=== PATIENT | female | born 1965 | race Caucasian/White ===

== ENCOUNTER 2016-11-01 09:36 | Emergency (ER) | payer MEDICARE ==
[2016-11-01] MEDS ORDERED: SODIUM CHLORIDE 0.9% 1,000 ML IV ONE (10:02)
[2016-11-01] MEDS ORDERED: KETOROLAC 30 MG/ML 1 ML VIAL IVP STA (10:03)
[2016-11-01] MEDS ORDERED: diphenhydrAMINE 50 MG/ML 1 ML VIAL IVP STA (10:03)
[2016-11-01] MEDS ORDERED: ONDANSETRON 4 MG/2 ML VIAL IVP STA (10:03)
--- NOTE | 2016-11-01 10:11 | ED ---
General Adult HPI - General Chief complaint: Headache Stated complaint: migraine,cough Time Seen by Provider: 11/01/16 09:51 Source: patient, RN notes reviewed Mode of arrival: ambulatory Limitations: no limitations - History of Present Illness Initial comments: This 51-year-old female presents emergency Department with chief complaint of migraine headache, cough. Patient states the headache has been present for over one week in the frontal aspect. She states that she has had headache like this in the past and states that the time it was her worst when she had her first migraine and they did an LP. Patient states that she has no history of meningitis. Patient states she has no neck pain or neck stiffness. She does complain of a sore throat states it's very raw feeling states it hurts to cough. Patient states that she's felt rundown and sick and states symptoms are not improving. She is concerned as her friend in the room was recently admitted for pneumonia and she is on current IV antibiotics and she has been helping take care of her. Patient states that she has no ear pain no blurred vision but she does have some photosensitivity. Patient has any focal weakness. She does admit to some nausea no vomiting no diarrhea no constipation. She is a daily smoker and has some shortness of breath but not her baseline. - Related Data Home Medications Medication Instructions Recorded Confirmed Albuterol Inhaler [Ventolin Hfa 1 - 2 puff INHALATION RT-Q6H PRN 11/01/16 Inhaler] Citalopram Hydrobromide [CeleXA] 20 mg PO BID 11/01/16 11/01/16 Ibuprofen [Motrin] 800 mg PO Q8H PRN 11/01/16 11/01/16 LORazepam [Ativan] 1 mg PO BID PRN 11/01/16 11/01/16 Lisinopril [Zestril] 2.5 mg PO DAILY 11/01/16 11/01/16 Morphine Sulfate Ir [Msir] 30 mg PO Q4HR PRN MDD 5 tablets 11/01/16 11/01/16 fentaNYL 12MCG/HR PATCH [Duragesic 1 patch TRANSDERM Q72H 11/01/16 11/01/16 12MCG/HR] Previous Rx's Medication Instructions Recorded Butalb/APAP/Caff 50-325-40Mg 1 tab PO Q4H PRN #10 tablet 11/01/16 [Fioricet 50-325-40] Levofloxacin [Levaquin] 500 mg PO DAILY #7 tab 11/01/16 methylPREDNISolone [Medrol Dose 4 mg PO DIRECTED #1 pack 11/01/16 Pack] Allergies Allergy/AdvReac Type Severity Reaction Status Date / Time No Known Allergies Allergy Verified 11/01/16 10:55 Review of Systems ROS Statement: Those systems with pertinent positive or pertinent negative responses have been documented in the HPI. ROS Other: All systems not noted in ROS Statement are negative. Past Medical History Past Medical History: Asthma, COPD History of Any Multi-Drug Resistant Organisms: None Reported Additional Past Surgical History / Comment(s): partial discectomy in lumbar region, cyst in knee removed Past Psychological History: No Psychological Hx Reported Smoking Status: Current every day smoker Past Alcohol Use History: None Reported Past Drug Use History: None Reported General Exam Limitations: no limitations General appearance: alert, in no apparent distress Head exam: Present: atraumatic, normocephalic, normal inspection Eye exam: Present: normal appearance, PERRL, EOMI. Absent: scleral icterus, conjunctival injection, periorbital swelling ENT exam: Present: mucous membranes moist, TM's normal bilaterally, normal external ear exam. Absent: normal exam, normal oropharynx Neck exam: Present: normal inspection, full ROM. Absent: tenderness, meningismus, lymphadenopathy Respiratory exam: Present: normal lung sounds bilaterally. Absent: respiratory distress, wheezes, rales, rhonchi, stridor Cardiovascular Exam: Present: regular rate, normal rhythm, normal heart sounds. Absent: systolic murmur, diastolic murmur, rubs, gallop, clicks GI/Abdominal exam: Present: soft, normal bowel sounds. Absent: distended, tenderness, guarding, rebound, rigid Neurological exam: Present: alert, oriented X3, CN II-XII intact, reflexes normal. Absent: motor sensory deficit Skin exam: Present: warm, dry, intact, normal color. Absent: rash Course Vital Signs 11/01/16 11/01/16 11/01/16 09:42 10:02 10:58 Temperature 99.1 F 100 F H 98.3 F Pulse Rate 89 65 Respiratory 18 17 Rate Blood Pressure 149/98 128/77 O2 Sat by Pulse 94 L Oximetry - Reevaluation(s) Reevaluation #1: 11/01/16 11:42 Patient was reevaluated at this time states that her is resolving no she is requesting further medications. Patient's neurological exam remains benign. Patient did on the results: X-ray Medical Decision Making - Medical Decision Making 51-year-old female presented for cough congestion headache. Patient has a migraine headache at this time. Patient's x-ray does not show any changes of COPD though underlying infection may be present. Patient was started on antibiotics that she's had recent exposure to pneumonia. Patient's cough is productive. Patient's will be given Fioricet for headaches and return parameters were discussed. - Lab Data Result diagrams: 11/01/16 09:55 11/01/16 09:55 Lab Results 11/01/16 11/01/16 11/01/16 Range/Units 09:50 09:55 09:55 WBC 4.8 (3.8-10.6) k/uL RBC 4.61 (3.80-5.40) m/uL Hgb 14.4 (11.4-16.0) gm/dL Hct 41.1 (34.0-46.0) % MCV 89.1 (80.0-100.0) fL MCH 31.3 (25.0-35.0) pg MCHC 35.1 (31.0-37.0) g/dL RDW 12.4 (11.5-15.5) % Plt Count 167 (150-450) k/uL Neutrophils % 65 % Lymphocytes % 24 % Monocytes % 6 % Eosinophils % 1 % Basophils % 1 % Neutrophils # 3.1 (1.3-7.7) k/uL Lymphocytes # 1.1 (1.0-4.8) k/uL Monocytes # 0.3 (0-1.0) k/uL Eosinophils # 0.0 (0-0.7) k/uL Basophils # 0.0 (0-0.2) k/uL Sodium 135 L (137-145) mmol/L Potassium 4.4 (3.5-5.1) mmol/L Chloride 101 (98-107) mmol/L Carbon Dioxide 22 (22-30) mmol/L Anion Gap 12 mmol/L BUN 4 L (7-17) mg/dL Creatinine 0.45 L (0.52-1.04) mg/dL Est GFR (MDRD) Af Amer >60 (>60 ml/min/1.73 sqM) Est GFR (MDRD) Non-Af >60 (>60 ml/min/1.73 sqM) Glucose 96 (74-99) mg/dL Calcium 9.1 (8.4-10.2) mg/dL Total Bilirubin 0.3 (0.2-1.3) mg/dL AST 30 (14-36) U/L ALT 27 (9-52) U/L Alkaline Phosphatase 80 (38-126) U/L Total Protein 7.1 (6.3-8.2) g/dL Albumin 4.3 (3.5-5.0) g/dL Heterophile Antibody (Negative) Group A Strep Rapid Negative (Negative) 11/01/16 Range/Units 09:55 WBC (3.8-10.6) k/uL RBC (3.80-5.40) m/uL Hgb (11.4-16.0) gm/dL Hct (34.0-46.0) % MCV (80.0-100.0) fL MCH (25.0-35.0) pg MCHC (31.0-37.0) g/dL RDW (11.5-15.5) % Plt Count (150-450) k/uL Neutrophils % % Lymphocytes % % Monocytes % % Eosinophils % % Basophils % % Neutrophils # (1.3-7.7) k/uL Lymphocytes # (1.0-4.8) k/uL Monocytes # (0-1.0) k/uL Eosinophils # (0-0.7) k/uL Basophils # (0-0.2) k/uL Sodium (137-145) mmol/L Potassium (3.5-5.1) mmol/L Chloride (98-107) mmol/L Carbon Dioxide (22-30) mmol/L Anion Gap mmol/L BUN (7-17) mg/dL Creatinine (0.52-1.04) mg/dL Est GFR (MDRD) Af Amer (>60 ml/min/1.73 sqM) Est GFR (MDRD) Non-Af (>60 ml/min/1.73 sqM) Glucose (74-99) mg/dL Calcium (8.4-10.2) mg/dL Total Bilirubin (0.2-1.3) mg/dL AST (14-36) U/L ALT (9-52) U/L Alkaline Phosphatase (38-126) U/L Total Protein (6.3-8.2) g/dL Albumin (3.5-5.0) g/dL Heterophile Antibody Negative (Negative) Group A Strep Rapid (Negative) Disposition Clinical Impression: Migraine, COPD (chronic obstructive pulmonary disease), URI (upper respiratory infection), Acute pharyngitis Disposition: HOME SELF-CARE Condition: Stable Instructions: Acute Headache (ED) Additional Instructions: Please return to the Emergency Department if symptoms worsen or any other concerns. Prescriptions: Butalb/APAP/Caff 50-325-40Mg [Fioricet 50-325-40] 1 tab PO Q4H PRN #10 tablet PRN Reason: Headache Levofloxacin [Levaquin] 500 mg PO DAILY #7 tab methylPREDNISolone [Medrol Dose Pack] 4 mg PO DIRECTED #1 pack Referrals: Brant Ding DO [Primary Care Provider] - 1-2 days Time of Disposition: 11:44
[2016-11-01 10:16] LABS: Basophils % (A) 1 %; CH 31.7; CHCM 35.7; Eosinophils % (A) 1 %; HCT 41.1 % (34.0-46.0); HDW 2.49; HGB 14.4 gm/dL (11.4-16.0); Luc # (Auto) 0.21; Luc % (Auto) 4; Lymphocytes # (A) 1.1 k/uL (1.0-4.8); Lymphocytes % (A) 24 %; MCH 31.3 pg (25.0-35.0); MCHC 35.1 g/dL (31.0-37.0); MCV 89.1 fL (80.0-100.0); Mean Platelet Volume 7.4; Monocytes # (A) 0.3 k/uL (0-1.0); Monocytes % (A) 6 %; Neutrophils # (A) 3.1 k/uL (1.3-7.7); Neutrophils % (A) 65 %; RBC 4.61 m/uL (3.80-5.40); RDW 12.4 % (11.5-15.5); WBC 4.8 k/uL (3.8-10.6); WBC (Perox) 4.63
[2016-11-01 10:27] LABS: ALT 27 U/L (9-52); AST 30 U/L (14-36); Alkaline Phosphatase 80 U/L (38-126); Anion Gap 12 mmol/L; Blood Urea Nitrogen 4 mg/dL (7-17); Calcium 9.1 mg/dL (8.4-10.2); Carbon Dioxide 22 mmol/L (22-30); Chloride 101 mmol/L (98-107); Glucose 96 mg/dL (74-99); Non-African American GFR(MDRD) >60 (>60 ml/min/1.73 sqM); Potassium 4.4 mmol/L (3.5-5.1); Sodium 135 mmol/L (137-145); Total Bilirubin 0.3 mg/dL (0.2-1.3); Total Protein 7.1 g/dL (6.3-8.2)
--- NOTE | 2016-11-01 10:54 | XR ---
EXAMINATION TYPE: XR chest 2V DATE OF EXAM: 11/01/2016 COMPARISON: 04/17/2015 HISTORY: Cough and chest pain TECHNIQUE: Frontal and lateral views of the chest are obtained. FINDINGS: There is no focal air space opacity, pleural effusion, or pneumothorax seen. Again there i s pulmonary hyperinflation, biapical lucency, tapering of the pulmonary vasculature and flattening of the diaphragms on the lateral image compatible with underlying COPD. The cardiac silhouette size is within normal limits. The osseous structures are intact. IMPRESSION: No acute cardiopulmonary process. Radiographic sequela of COPD.
[2016-11-01 12:06] VITALS: BP 133/99; PULSE 78; RESP 15; TEMP 97.8
== END 2016-11-01 12:14 | disposition home or self-care (01) ==
LOC: EC 09:36
DX: G43.909 Migraine, unspecified, not intractable, without status migrainosus (principal); J44.9 Chronic obstructive pulmonary disease, unspecified; J02.9 Acute pharyngitis, unspecified; F17.200 Nicotine dependence, unspecified, uncomplicated; Z79.899 Other long term (current) drug therapy
CPT/HCPCS: 36415; 80053; 85025; 86308; 87081; 87430; 71020; 99284; 96374; 96375 ×2; 96361 ×2; J1200; J2405; J1885

== ENCOUNTER → 2017-07-01 | Outpatient (CLI) | payer MEDICARE ==
--- NOTE | 2017-07-01 13:57 | XR ---
EXAMINATION TYPE: XR cervical spine comp DATE OF EXAM: 07/01/2017 COMPARISON: NONE HISTORY: 52-year-old female with neck pain TECHNIQUE: 6 views FINDINGS: Rightward head tilt. Carotid calcifications on the left. Facet and uncovertebral joint degenerative change particularly on the right mid to lower cervical spi ne. On the right, this causes mild neuroforaminal narrowing at both C3-C4 and C5-C6. On the left, no sign ificant bony neuroforaminal narrowing. Alignment is maintained. No prevertebral soft tissue swelling. Disc interspace is also relatively tricia ntained. Normal odontoid view. IMPRESSION: 1. Facet and uncovertebral joint degenerative change particularly on the right causing mild right-deborah ed bony neuroforaminal narrowing at C3-C4 and C5-C6. 2. Rightward head tilt could be due to pain/positioning or muscle spasm.
== END | disposition home or self-care (01) ==
LOC: RADXRMAIN 11:51
PROVIDERS: ATTEND Internal Medicine
DX: M99.71 Connective tissue and disc stenosis of intervertebral foramina of cervical region (principal)
CPT/HCPCS: 72050

== ENCOUNTER → 2017-07-09 | Outpatient (CLI) | payer MEDICARE ==
--- NOTE | 2017-07-09 09:05 | MR ---
EXAMINATION TYPE: MR cervical spine wo con DATE OF EXAM ORDERED: 07/09/2017 8:48 AM HISTORY: M54.2 Neck Pain. TECHNOLOGIST HISTORY AT TIME OF EXAM: Neck pain, headaches, rt arm weakness, hx fall/neck surgery 201 1 COMPARISON: None. TECHNIQUE: Multiplanar, multiecho imaging of the cervical spine was obtained without contrast on a 1 .5 brenda magnet. FINDINGS: Prevertebral soft tissues are normal. Vertebral body height and alignment are maintained. Atlantoaxial relationships are normal. There is a normal craniocervical junction. Cord signal is normal. At C2-C3, there is mild disc space loss. There is mild, bilateral intervertebral foraminal narrowing. There is a diffuse disc displacement. There is mild facet arthropathy. The uncovertebral joints are normal. At C3-C4, there is right-sided intervertebral foraminal narrowing. There is mild, diffuse disc displa cement. The facet and uncovertebral joints are unremarkable At C4-C5, there is mild disc space loss. The intervertebral foramina are reasonably well-maintained. There is no significant compressive discopathy. The facet and uncovertebral joints are unremarkable. At C5-C6, there is mild disc space loss. There is a right paracentral disc protrusion deforming the t hecal sac with cord contact and displacement. There is right-sided intervertebral foraminal narrowing . The facet and uncovertebral joints are unremarkable And C6-7 and C7-T1, no definite abnormality is seen. IMPRESSION: 1. RIGHT PARACENTRAL DISC PROTRUSION, C5-6 DEFORMING THE THECAL SAC WITH CORD CONTACT AND MILD DISPLA CEMENT. 2. MULTILEVEL INTERVERTEBRAL FORAMINAL NARROWING.
== END | disposition home or self-care (01) ==
LOC: RADMRIMAIN 08:22
PROVIDERS: ATTEND Internal Medicine
DX: M99.71 Connective tissue and disc stenosis of intervertebral foramina of cervical region (principal); M50.222 Other cervical disc displacement at C5-C6 level
CPT/HCPCS: 72141

== ENCOUNTER → 2017-08-15 | Outpatient (CLI) | payer MEDICARE | END | disposition home or self-care (01) | LOC: LABPAT 09:10 | PROVIDERS: ATTEND Orthopaedic Surgery Orthopaedic Surgery of the Spine | DX: Z01.812 Encounter for preprocedural laboratory examination (principal); Z53.9 Procedure and treatment not carried out, unspecified reason ==

== ENCOUNTER → 2017-08-24 | Outpatient (CLI) | payer MEDICARE ==
[2017-08-24 12:19] LABS: Appearance,Urine Clear (Clear); Bilirubin,Urine Negative (Negative); Blood,Urine Negative (Negative); Color,Urine Light Yellow; Glucose,Urine (UA) Negative (Negative); Ketones,Urine Negative (Negative); Leukocyte Esterase,Urine Negative (Negative); Nitrite,Urine Negative (Negative); Protein,Urine Negative (Negative); Specific Gravity,Urine 1.008 (1.001-1.035); Urobilinogen,Urine <2.0 mg/dL (<2.0)
[2017-08-24 12:25] LABS: Partial Thromboplastin Time 23.3 sec (22.0-30.0); Prothrombin Time 9.7 sec (9.0-12.0)
[2017-08-24 12:29] LABS: Anion Gap 11 mmol/L; Blood Urea Nitrogen 22 mg/dL (7-17); Calcium 9.7 mg/dL (8.4-10.2); Carbon Dioxide 25 mmol/L (22-30); Chloride 99 mmol/L (98-107); Glucose 115 mg/dL (74-99); Sodium 135 mmol/L (137-145)
[2017-08-24 12:43] LABS: Basophils # (A) 0.1 k/uL (0-0.2); Basophils % (A) 1 %; Eosinophils # (A) 0.1 k/uL (0-0.7); Eosinophils % (A) 1 %; HCT 37.5 % (34.0-46.0); Lymphocytes # (A) 2.4 k/uL (1.0-4.8); Lymphocytes % (A) 24 %; MCH 32.2 pg (25.0-35.0); MCHC 34.8 g/dL (31.0-37.0); MCV 92.5 fL (80.0-100.0); Mean Platelet Volume 6.5; Monocytes # (A) 0.6 k/uL (0-1.0); Monocytes % (A) 6 %; Neutrophils # (A) 6.7 k/uL (1.3-7.7); Neutrophils % (A) 67 %; Platelet Count 372 k/uL (150-450); RBC 4.05 m/uL (3.80-5.40); RDW 12.6 % (11.5-15.5); WBC 9.9 k/uL (3.8-10.6)
--- NOTE | 2017-08-24 15:41 | XR ---
EXAMINATION TYPE: XR chest 2V DATE OF EXAM: 08/24/2017 COMPARISON: November 01, 2016 HISTORY: Shortness of breath TECHNIQUE: Frontal and lateral views of the chest are obtained. FINDINGS: Scattered senescent parenchymal changes noted. No evidence for infiltrate. No evidence for atelectasis. Heart size is stable. Mediastinal structures are stable and grossly unremarkable. No evidence for hilar prominence. Degenerative changes dorsal spine. IMPRESSION: 1. No evidence for acute pulmonary disease.
== END | disposition home or self-care (01) ==
LOC: LABPAT 11:27
PROVIDERS: ATTEND Orthopaedic Surgery Orthopaedic Surgery of the Spine
DX: Z01.812 Encounter for preprocedural laboratory examination (principal)
CPT/HCPCS: 36415; 71046; 80048; 81003; 85025; 85610; 85730; 86850; 86900; 86901

== ENCOUNTER 2017-08-31 09:40 | Day surgery (SDC) | payer MEDICARE ==
[2017-08-18 13:19] VITALS: BMI 19.2
[~2017-08-31 09:40] MED LIST: BACITRACIN 50,000 UNIT, POLYMYXIN B 500,000 UNIT in SODIUM CHLORIDE 0.9% IRRIGATIO 1,00... IRRIGATION ONE; ceFAZolin IN SWFI 2 GM/20 ML SYRINGE IVP ONE
[2017-08-31] MEDS ORDERED: LIDOCAINE 1% 20 ML VIAL (10MG/ML) FOR IV START INTRADERMA ONE (10:20)
[2017-08-31] MEDS ORDERED: LACTATED RINGERS 1,000 ML IV ONE (10:20)
[2017-08-31] MEDS ORDERED: MIDAZOLAM 2 MG/2 ML VIAL ONE (10:31)
[2017-08-31] MEDS ORDERED: ONDANSETRON 4 MG/2 ML VIAL ONE (10:31)
[2017-08-31] MEDS ORDERED: GLYCOPYRROLATE 0.2 MG/ML 2 ML VIAL ONE (12:25)
[2017-08-31] MEDS ORDERED: LIDOCAINE 1% INJ 10MG/ML (20 ML MDV) ONE (12:25)
[2017-08-31] MEDS ORDERED: PROPOFOL 10 MG/ML 20 ML VIAL IV ONE (12:25)
[2017-08-31] MEDS ORDERED: SUCCINYLCHOLINE CHLORIDE 100 MG/5 ML SYR IV ONE (12:25)
[2017-08-31] MEDS ORDERED: fentaNYL (PF) 50 MCG/ML 2 ML AMP ONE (12:25)
[2017-08-31] MEDS ORDERED: GELATIN SPONGE,ABSORB (LARGE) 1 EACH SPONGE MISCELLANE ONE (12:56)
[2017-08-31] MEDS ORDERED: THROMBIN (BOVINE) 5,000 UNIT VIAL MISCELLANE ONE (12:56)
[2017-08-31] MEDS ORDERED: LIDOCAINE 0.5%-EPI 1:200,000 50 ML VIAL SQ ONE (12:57)
[2017-08-31] MEDS ORDERED: HYDROmorphone 0.5 MG/0.5 ML SYRINGE IVP PRN ×2 (13:50)
[2017-08-31] MEDS ORDERED: MAGNESIUM HYDROXIDE 2,400 MG/10 ML CUP PO PRN (13:50)
[2017-08-31] MEDS ORDERED: ONDANSETRON 4 MG/2 ML VIAL IVP PRN (13:50)
[2017-08-31] MEDS ORDERED: ACETAMINOPHEN TAB 325 MG TAB PO PRN (13:50)
[2017-08-31] MEDS ORDERED: BENZOCAINE/MENTHOL LOZENG 1 EACH LOZENGE MUCOUS MEM PRN (13:50)
[2017-08-31] MEDS ORDERED: LORazepam 1 MG TAB PO PRN (13:52)
[2017-08-31] MEDS ORDERED: MORPHINE SULFATE IR 15 MG TABLET PO PRN (13:52)
[2017-08-31] MEDS ORDERED: IBUPROFEN 800 MG TAB PO PRN (13:52)
--- NOTE | 2017-08-31 13:57 | P.OP ---
Date of Procedure: 08/31/17 Preoperative Diagnosis: Herniated nucleus pulposus C5 6, upper extremity radiculopathy, right upper extremity weakness, Postoperative Diagnosis: Same Anesthesia: GETA Pathology: none sent Condition: stable Disposition: PACU Description of Procedure: BRIEF OPERATIVE NOTE Preoperative Diagnosis: Herniated nucleus pulposis C5 6, extruded disc C5 6, right upper extremity weakness with radiculopathy, neck pain, degenerative disc disease Postoperative Diagnosis: Same Procedure: Anterior cervical decompression and fusion C5 6 Placement of interbody graft C5 6 Application of anterior cervical plate C5 6 Surgeon: Dr. Cervantes Forensic Structural Engineer: Jasbir BELL who is present throughout the entire the case persistence during positioning, dissection, exposure, visualization, and all crucial elements of the case as well as closure. Anesthesia: General anesthesia Estimated blood loss: Approximately 20 mL Complications: None apparent Components implanted: K2M [place] anterior cervical plate system with Vikos interbody allograft bone graft Disposition: To recovery room in good stable condition. OPERATIVE INDICATIONS The patient has had severe issues in their neck and upper extremities particularly on the right where she is having severe radiculopathy and some weakness. She is found to have a large extruded disc herniation at C5 6 which correlated well with her neck and upper extremity symptoms. The patient has been through conservative treatment. She is not having any benefit despite conservative management. We discussed various treatment options including surgery, and the patient wishes to proceed with surgery We discussed the risk, patient's alternatives and benefits of surgery including but not limited to, risk of bleeding risk of infection, risk of need for further surgery, risk of decreased, loss of motion, muscle function, malunion nonunion, hardware failure , nerve damage, paralysis, heart attack, and . OPERATIVE SUMMARY After discussing all the risks, patient alternatives and benefits at length, the patient elected to proceed with surgical intervention, signed informed consent, and presented for their procedure. The patient was seen and examined in the preoperative holding area and the surgical site was marked. The patient was given antibiotics and brought to the operating room. The patient was positioned on the operating room table in a supine position being careful to pad any bony prominences and pressure points. The patient was sedated and intubated by anesthesia in standard fashion. Once the airway and C- spine were stabilized the patient's arms were padded and tucked at her side, with her shoulders gently taped. The head was placed in a donut pad with the neck in good neutral alignment and position. We were careful to maintain the patient's cervical spine and good neutral alignment and position throughout. The patient was prepped and draped in a normal standard fashion. An appropriate timeout and keystone protocol performed. We were able to proceed with the surgery. The local wound area was infiltrated with local anesthetic. An incision was made transversely approximately 2-1/2 cm over the appropriate levels at C5 6. Dissection was taken down subcutaneously to the level of the platysma which was split in line with its fibers. Dissection was taken with a carotid approach, with the trachea and esophagus medial and the carotid sheath laterally. We dissected down to the anterior surface of the vertebral bodies of C5 and 6. Intraoperative x-ray was taken which showed a marker at the appropriate level of the C5 6 disc space. With the appropriate level positively confirmed, we were able to proceed with discectomy at the appropriate levels of C5 6. All of the operative levels were exposed appropriately. The patient had all their twitches back, and there was no evidence of recurrent laryngeal issue. The wound was copiously irrigated and suctioned dry as had been done periodically throughout the case. At the appropriate level/levels of C5 6, I established an annulotomy with an 11 blade scalpel. A discectomy was performed with a combination of pituitary rongeurs, curettes, a high-speed bur, and Kerrison rongeurs. The posterior longitudinal ligament was taken down as were any posterior osteophytes. I was able to remove a extruded disc fragment at the right side at C5 6. This gave good central and bilateral foraminal decompression. There is no evidence of any dural tear or leak. The endplates were prepared with a high-speed bur. With the endplates in good parallel position, I was able to size for the appropriate size interbody graft. The wound was irrigated and suctioned dry the graft was prepared and malleted into position. It had good alignment and position with the anterior surface flush with the anterior surface of the vertebral bodies. With the grafts intact, I was able to measure and contour and appropriate sized plate. The plate was positioned at the midline over the appropriate levels of C5 6. Screw holes were established with a hand drill and drill guide. Screws were placed in good alignment and position with excellent bony purchase. They were seated under the locking device. The construct was checked and found to be stable. Intraoperative x-ray was taken which showed good alignment and position of the implants at the appropriate levels of C5 6. There was no evidence of any dural tear or leak. Good hemostasis was maintained. The wound was copiously irrigated and suctioned dry as had been done periodically throughout the case. The platysma was closed with absorbable suture. The subcutaneous tissue was closed. The subcuticular tissue was closed with absorbable suture. The wound was cleaned and dried and dressed appropriately. A soft cervical collar was placed appropriately. The patient was woken up by anesthesia, extubated, transferred back gently to their hospital bed and brought to the recovery room in good stable condition. The patient will be admitted to the hospital for appropriate postoperative care , medical management and monitoring. We will continue to follow them closely about the postoperative course.
--- NOTE | 2017-08-31 14:02 | XR ---
EXAMINATION TYPE: XR cervical spine 1V DATE OF EXAM: 08/31/2017 COMPARISON: NONE HISTORY: Intraoperative exam. Needle placement. Surgical intervention of the cervical spine for pain. TECHNIQUE: Single crosstable lateral intraoperative image was performed for localization. FINDINGS/IMPRESSION: Localization at the level of C5-C6 intervertebral disc space is seen from an ant erior approach. Patient is intubated. Alignment is maintained of the cervical spine.
--- NOTE | 2017-08-31 14:03 | XR ---
EXAMINATION TYPE: XR cervical spine 1V DATE OF EXAM: 08/31/2017 COMPARISON: 08/31/2017 HISTORY: Intraoperative exam. Hardware placement Surgical intervention of the cervical spine for pain . TECHNIQUE: Single crosstable lateral intraoperative image was performed for localization. FINDINGS/IMPRESSION: Anterior cervical fusion device and intervertebral disc cages have been placed a t the C5-C6 level from an anterior approach. Patient is intubated. Alignment is maintained of the cer vical spine.
[2017-08-31 14:17] VITALS: RESP 16
[2017-08-31] MEDS: HYDROmorphone 1 MG/ML 1 ML SYRINGE IVP ONE ×2 (14:19→14:36)
[2017-08-31] MEDS: DIAZEPAM 5 MG TAB PO PRN ×2 (15:28→21:41)
[2017-08-31] MEDS: SODIUM CHLORIDE 0.9% 1,000 ML IV SCH (16:07)
[2017-08-31] MEDS: ceFAZolin IN SWFI 2 GM/20 ML SYRINGE IVP SCH ×2 (18:03→23:51)
[2017-08-31] MEDS: HYDROcodone/APAP 5-325MG 1 EACH TAB PO PRN ×2 (18:19→23:51)
[2017-08-31] MEDS: ALBUTEROL NEBULIZED 2.5 MG/3 ML INHALATION PRN (20:25)
[2017-08-31] MEDS: ATENOLOL 50 MG TAB PO SCH (20:47)
[2017-08-31] MEDS: CITALOPRAM HYDROBROMIDE 20 MG TAB PO SCH (20:47)
[2017-09-01 05:44] VITALS: BP 115/59; TEMP 98.2
[2017-09-01] MEDS: HYDROcodone/APAP 5-325MG 1 EACH TAB PO PRN (07:00)
[2017-09-01] MEDS: DIAZEPAM 5 MG TAB PO PRN (07:00)
[2017-09-01] MEDS: CITALOPRAM HYDROBROMIDE 20 MG TAB PO SCH (07:05)
[2017-09-01] MEDS: ATENOLOL 50 MG TAB PO SCH (07:05)
[2017-09-01] MEDS: ALBUTEROL NEBULIZED 2.5 MG/3 ML INHALATION PRN (07:05)
[2017-09-01] MEDS: SODIUM CHLORIDE 0.9% 1,000 ML IV SCH (07:09)
[2017-09-01 07:17] VITALS: PULSE 68
[2017-09-01] MEDS ORDERED: SENNOSIDES-DOCUSATE SODIUM 1 EACH TAB PO SCH (09:00)
--- NOTE | 2017-09-01 09:32 | P.DS ---
Providers Date of admission: 08/31/17 Attending physician: Eva Cervantes Primary care physician: Brant [facility] Course: The patient presented on the day of admission as per her operative note. She underwent her anterior cervical discectomy with decompression and fusion at C5 6 for her large disc herniation at C5 6 with her upper extremity radiculopathy and weakness. She feels she is making good progress with her right upper extremity already. She is having some soreness at her neck as expected. Physical Exam The incision site is clean dry and intact. There is no erythema no drainage. There is no purulence no evidence of infection. Her neck is soft and supple without any significant fluid collection. Abdomen soft and nontender. Chest has good excursion with deep inspiration and expiration. The patient has active and passive range of motion intact at the upper and lower extremities. There is no acute change in neurologic status. She feels she is moving her right arm better but still has some slight weakness. Hospital Course Postoperative day 1 status post anterior cervical discectomy with decompression and fusion at C56 for her disc herniation with a right upper extremity radiculopathy and weakness. The patient has been making good progress postoperatively. She feels she is progressing in terms of her sensation and her pain at her right upper extremity. She has some soreness at her neck which is understandable and expected with surgery. They have completed the prophylactic antibiotics without any signs or symptoms of infection. The patient has been able to advance their diet, and is tolerating diet adequately. The pain was initially controlled with IV medications and is now controlled appropriately with oral medications. The patient has been able to increase their mobilization. The patient has progressed appropriately. I think they are in good stable condition for discharge today. They will be sent home with appropriate prescriptions. I answered their questions to the best of my ability in a language that they can understand and they are agreeable with the plan. They will follow up as directed in approximately 2 weeks or sooner she's having any problems. Patient Condition at Discharge: Good Plan - Discharge Summary Discharge Rx Participant: Yes New Discharge Prescriptions: New Hydrocodone/Acetaminophen [[employer] 5-325] 1 tab PO Q8H PRN #60 tab PRN Reason: Severe Pain No Action Citalopram Hydrobromide [CeleXA] 20 mg PO BID Morphine Sulfate Ir [Msir] 30 mg PO BID PRN PRN Reason: Pain LORazepam [Ativan] 1 mg PO BID PRN PRN Reason: Anxiety Albuterol Inhaler [Ventolin Hfa Inhaler] 1 - 2 puff INHALATION BID Ibuprofen [Motrin] 800 mg PO Q8H PRN PRN Reason: Pain rOPINIRole HCL [Requip] 1 mg PO HS Atenolol 100 mg PO BID Discharge Medication List Albuterol Inhaler [Ventolin Hfa Inhaler] 1 - 2 puff INHALATION BID 11/01/16 [ History] Citalopram Hydrobromide [CeleXA] 20 mg PO BID 11/01/16 [History] Ibuprofen [Motrin] 800 mg PO Q8H PRN 11/01/16 [History] LORazepam [Ativan] 1 mg PO BID PRN 11/01/16 [History] Morphine Sulfate Ir [Msir] 30 mg PO BID PRN 11/01/16 [History] Atenolol 100 mg PO BID 08/18/17 [History] rOPINIRole HCL [Requip] 1 mg PO HS 08/18/17 [History] Hydrocodone/Acetaminophen [[employer] 5-325] 1 tab PO Q8H PRN #60 tab 09/01/17 [Rx] Follow up Appointment(s)/Referral(s): Eva Cervantes DO [Doctor of Osteopathic Medicine] - 09/16/17 1:15 pm (Patient may follow-up with Jasbir Hong PA-C or Dr. Antione Cervantes at [facility] in 2-3 weeks following discharge. ) Patient Instructions/Handouts: *Surgery [facility] - ([facility]) Cervical Surgery Discharge Instructions Activity/Diet/Wound Care/Special Instructions: 1. Keep site clean. 2. May shower with waterproof Tegaderm intact. Do not soak in a tub. 3. On Tuesday, the patient may remove dressing believe Steri-Strips intact. May shower with Steri-Strips exposed thereafter. 4. Avoid heavy or rigorous activity. 5. May ambulate to tolerance. 6. No repetitive bending twisting or lifting. 7. Take narcotic pain medication as previously prescribed as needed for control of her symptoms 8. Patient should avoid anti-inflammatories over the next 6 weeks postsurgically Discharge Disposition: HOME SELF-CARE
== END 2017-09-01 10:40 | disposition home or self-care (01) ==
LOC: OR 09:40 → 5MS5E 14:32 → OR 09-01 10:40
PROVIDERS: ATTEND Orthopaedic Surgery Orthopaedic Surgery of the Spine
DX: M50.122 Cervical disc disorder at C5-C6 level with radiculopathy (principal); I10 Essential (primary) hypertension; J43.9 Emphysema, unspecified; F17.210 Nicotine dependence, cigarettes, uncomplicated; R53.1 Weakness; F32.9 Major depressive disorder, single episode, unspecified; Z91.81 History of falling; Z79.891 Long term (current) use of opiate analgesic; Z79.899 Other long term (current) drug therapy
CPT/HCPCS: 94640 ×2; 94760; 72020; 22551; 22845; 20930; C1713; C1762; J2250; J2405; J2001; J3010; J1170 ×2; J0330; J2704; J0690; 86850; 86900; 86901

== ENCOUNTER → 2018-05-31 | Outpatient (CLI) | payer MEDICARE ==
--- NOTE | 2018-05-31 08:10 | FL ---
EXAMINATION TYPE: FL barium swallow DATE OF EXAM: 05/31/2018 CLINICAL HISTORY: History of neck surgery roughly 1 years ago with dysphagia and neck mass per order. Difficulty swallowing for 4 months per patient. TECHNIQUE: A double contrast esophagram is performed utilizing air and barium. A total of 28 second s of fluoroscopic time was utilized during procedure. 46 spot images are saved during procedure. COMPARISON: None FINDINGS: The esophagus shows satisfactory motility and emptying into the stomach. No evidence of hi atal hernia or stricture noted. No suspicious mass is seen with particular attention to the proximal esophagus at area of clinical concern. Note is made of anterior fusion plate at C5-C6 level without s ignificant local mass effect. No diverticulum is seen. No significant gastroesophageal reflux was see n during real time performance of this study. IMPRESSION: No significant abnormality is seen to account for patient's symptoms.
--- NOTE | 2018-05-31 10:00 | CT ---
EXAMINATION TYPE: CT soft tissue neck w con DATE OF EXAM: 05/31/2018 COMPARISON: None HISTORY: Neck Mass, Dysphagia CT DLP: 266.2 mGycm CONTRAST: Patient injected with 100 mL of Isovue 300. TECHNIQUE: Axial images at 3 mm thick sections. Reconstructed images in the coronal plane and sagitt al plane are reviewed. FINDINGS: Limited CT sections are obtained the lung apices. Emphysematous changes are present within the upper lung apices within the [id number]. Portion of the thyroid included within the field-of- view is normal. Subglottic airway appears normal. CT neck: The torus tubarius and fossa of Rosenmuller are normal. [place] spaces are normal. Para nasal sinuses and mastoid air cells are clear. Parotid glands appear normal and symmetrical. Submandibular glands, are normal. Parapharyngeal spac es are normal. No suspicious adenopathy is evident. The hypopharynx appears within normal limits. Vocal cord level appear symmetrical. Osseous structures are normal. Some beam hardening artifact from an anterior cervical fusion is evide nt. The prevertebral space appears normal. IMPRESSIONS: 1. No discrete masses to account for patient's dysphagia.
== END ==
LOC: RADCTMAIN 06:46
PROVIDERS: ATTEND Otolaryngology
DX: R22.1 Localized swelling, mass and lump, neck (principal); R05 Cough; R13.10 Dysphagia, unspecified; R49.0 Dysphonia
CPT/HCPCS: 74220; 70491; Q9967

== ENCOUNTER → 2020-09-05 | Outpatient (CLI) | payer MEDICARE ==
--- NOTE | 2020-09-10 11:05 | MM ---
Reason for exam: screening (asymptomatic). Last mammogram was performed 5 years and 8 months ago. History: Patient is postmenopausal. Physical Findings: A clinical breast exam by your physician is recommended on an annual basis and results should be correlated with mammographic findings. MG 3D Screening Mammo W/Cad Bilateral CC and MLO view(s) were taken. Prior study comparison: December 31, 2014, bilateral MG screening mammo w CAD. The breast tissue is heterogeneously dense. This may lower the sensitivity of mammography. Benign vascular calcifications. No significant changes when compared with prior studies. ASSESSMENT: Negative, BI-RAD 1 RECOMMENDATION: Routine screening mammogram of both breasts in 1 year.
== END | disposition home or self-care (01) ==
LOC: RADMAMWWP 10:24
PROVIDERS: ATTEND Internal Medicine
DX: Z12.31 Encounter for screening mammogram for malignant neoplasm of breast (principal); Z78.0 Asymptomatic menopausal state
CPT/HCPCS: 77063; 77067

== ENCOUNTER 2021-07-16 10:08 | Day surgery (SDC) | payer MEDICARE ==
[~2021-07-16 10:08] MED LIST changes: -BACITRACIN 50,000 UNIT, POLYMYXIN B 500,000 UNIT in SODIUM CHLORIDE 0.9% IRRIGATIO 1,00... IRRIGATION ONE; +LACTATED RINGERS 1,000 ML IV SCH; +LIDOCAINE 1% (10MG/ML) FOR IV START INTRADERMA PRN; -ceFAZolin IN SWFI 2 GM/20 ML SYRINGE IVP ONE
[2021-07-16 10:37] VITALS: TEMP 96.9
[2021-07-16] MEDS ORDERED: methylPREDNISolone ACETATE 40 MG/ML 1 ML VIAL ONE (10:55)
[2021-07-16] MEDS ORDERED: IOPAMIDOL M200 10 ML VIAL ONE (10:55)
[2021-07-16] MEDS ORDERED: fentaNYL (PF) 50 MCG/ML 2 ML AMP ONE (10:55)
[2021-07-16] MEDS ORDERED: MIDAZOLAM 2 MG/2 ML VIAL ONE (10:55)
--- NOTE | 2021-07-16 11:19 | P.PCN ---
Date of Procedure: 07/16/21 Procedure(s) Performed: PREOPERATIVE DIAGNOSIS: Lumbar radiculopathy . POSTOPERATIVE DIAGNOSIS: Same as preoperative diagnoses. PROCEDURE 1. Transforaminal epidural steroid injection under fluoroscopic guidance at left L5-S1 level. (Fluoroscopy images stored on file in the radiology Department ) 2. Lumbar epidurogram . ANESTHESIA: Local with 1% lidocaine 3 ml , moderate sedation with intravenous Versed 2 mg and fentanyle 100 micrograms. EBL: Minimal PROCEDURE INDICATION: The patient with low back pain and radiculopathy symptoms unresponsive to conservative treatment. PROCEDURE DESCRIPTION / TECHNIQUE: The patient was seen and identified in the preoperative area. Risks, benefits, complications, and alternatives were discussed with the patient. The patient agreed to proceed with the procedure and signed the consent. IV was started, and vital signs were stable. Patient was taken to the OR and time out was completed. The patient was placed in the prone position on procedure table and a pillow was placed under the abdomen to reduce lumbar lordosis. The lumbosacral area was prepped and draped in the usual sterile fashion. Critical pause was taken. Vital signs were closely monitored during the procedure. Conscious sedation was used during the procedure to decrease patient s anxiety. Using oblique fluoroscopy, the chin of the ``Dada dog at L5-S1 level was identified, and the skin and deeper tissues just below was localized with 1% lidocaine. Subsequently, a 22-gauge 3.5-inch spinal needle was advanced under a tunneled view fluoroscopic guidance just underneath the chin of the ``Dada dog at the left L5-S1 Under lateral fluoroscopy, the needle was then advanced to the posterior border of the interforaminal space. After negative aspiration of CSF and blood and with no paresthesias, 1 mL Isovue 200 contrast dye was injected excellent epidurogram and outlining of the nerve root Subsequently, 3 mL of block solution containing 80 mg Depo-Medrol and 2 mL of 0.9% normal saline PF was injected. Needle was removed . At the end of the procedure, skin was cleansed, and bandages were applied. COMPLICATIONS:none DISPOSITION / PLANS: The patient was placed in a supine position and transferred to the recovery area in a stable condition for observation. There was no evidence of lower extremity motor or sensory deficit after the procedure. Patient was discharged from the recovery room after meeting discharge criteria. Home discharge instructions were given to the patient by the staff. The patient was reexamined prior to discharge.
[2021-07-16] MEDS ORDERED: IV FLUID CONTINUATION 600 ML IV ONE (11:20)
[2021-07-16 11:31] VITALS: BP 131/70; PULSE 64; RESP 16
--- NOTE | 2021-07-16 13:24 | FL ---
Fluoroscopy HISTORY: Pain 7 seconds fluoroscopy time supplied to the referring clinician. 2 intraoperative C-arm images docume nt the procedure. See dictated report from anesthesia.
== END 2021-07-16 11:50 | disposition home or self-care (01) ==
LOC: ORPAIN 10:08
PROVIDERS: ATTEND Specialist
DX: M54.16 Radiculopathy, lumbar region (principal)
CPT/HCPCS: 64483; J2250; J1030; J3010; Q9966; 99152

== ENCOUNTER → 2021-08-10 | Outpatient (CLI) | payer MEDICARE ==
--- NOTE | 2021-08-10 12:45 | P.PN ---
Subjective Progress Note Date: 08/10/21 Principal diagnosis: A 56 yr old female with a history of severe and chronic low back pain secondary to lumbar degenerative disc diseases and lumbar spondylosis with facet arthropathy presents today for elevation status post left TF DELIO L5S1. She states she expressed 8090 percent pain relief for 3 weeks status post procedure. Pain level is currently at 8 out of 10 in intensity, dull, achy, pressure type sensation in the lower aspect of the lumbar spine with occasional radiation of pain down the left lower extremity. Pain is provoked by sitting and bending. Pain is alleviated with medications (Tylenol OTC), topicals which provided no relief, Lidoderm patches which provided no relief, injections, L today ice and heat which provided no relief, decreased activities, physical therapy in 2020 but she stopped as it mares too much, TENS unit which provides little to no pain relief, laying supine and rest. Interventional pain procedures completed include L TFESI L5-S1 Patient is currently on Tylenol OTC Patient denies any side effects of the medication(s), denies excessive drowsiness or sleepiness, denies suicidal ideation and reports that the current pain medication is helping to control the pain and improve activities of daily living. Patient denies any motor or sensory deficits. Patient denies any fever or night sweats, denies any change in the bowel movements or urination. Physical Examination: -Constitutional: Cooperative. Not in acute distress . -HEENT: Neck is supple. No lymphadenopathy. No thyromegaly. Normal thyroid size. Eyes: No ptosis , no icterus, no photophobia. ENT: No auditory deficits. Normal oropharynx. No Thrush. - Respiratory: Chest clear to auscultations bilaterally. No wheezing. No rhonchi. - Cardiovascular: Regular rate and rhythm. S1 / S2 , no S3 , no S4. - Gastrointestinal: Abdomen soft no tenderness. Bowel sounds positive in all four quadrants. No organomegaly. - Genitourinary: Deferred. - Neurologic: Cranial nerve II to XII intact. No focal neurological deficits. - Psychatric: Alert & oriented x 3. Matching mood & appropriate affect. Judgment and insight intact. - Lymphatic: No Lymphadenopathy. - Musculoskeletal: Cervical spine: Muscle bulk/ tone/ strength in the bilateral upper extremities normal. Facet loading test cervical area positive. Lumbar spine: Motor bulk/ tone/ strength lower extremities , thigh and legs : 5/5 Deep tendon reflexes : Normal Knee Jerk. Normal Ankle Jerk . Vertebral body tenderness to palpation over L5 Lumbar Facet Loading Test positive Straight Leg Raise: positive at 30 degrees right side/ left side Gaenslen's Test positive Sacral spine : Severe tenderness over the Sacroiliac joint: right side / left side Range of motion: Flexion of the lumbar spine <60 degrees Range of motion: Extension of the lumbar spine <20 degrees Gaenslen's Test positive Noé test: positive right side / left side Assessment and plan: Chronic low back pain secondary to lumbar degenerative disc disease , lumbar spondylosis with facet arthropathy without myelopathy Recommendation of left TF DELIO L5-S1 #2. May need a series of injections, up to 3 within a six-month period, for optimal pain relief. Risks, benefits of procedure discussed and patient verbalized understanding. Denies anticoagulant use or medical history of diabetes. All patient questions answered MAPS reviewed and it was appropriate. I have spent 31 minutes on patient care today. Dr Benton was available by phone for the evaluation of this patient. The time was used to review the medical records including relevant urine studies and Prescription history (MAPs), review of the available imaging, evaluation and examination of the patient, coordination of care with the medical staff and if applicable referring physicians, as well as creation of the medical record PQRS Measure Charge Sheet PQRS Narrative: Smoking Status Current every day smoker Home Medications: Ambulatory Orders Albuterol Inhaler (Mhu) [Ventolin Hfa Inhaler] 1 - 2 puff INHALATION BID 11/01/16 Citalopram Hydrobromide [CeleXA] 20 mg PO BID 11/01/16 Ibuprofen [Motrin] 800 mg PO Q8H PRN 11/01/16 LORazepam [Ativan] 1 mg PO BID PRN 11/01/16 Morphine Sulfate Ir [Msir] 30 mg PO BID PRN 11/01/16 atenoloL 100 mg PO BID 08/18/17 rOPINIRole HCL [Requip] 1 mg PO HS 08/18/17 Hydrocodone/Acetaminophen [[place] 5-325] 1 tab PO Q8H PRN #60 tab 09/01/17
[2021-08-10 12:47] VITALS: BP 124/72; PULSE 59; RESP 16
== END ==
LOC: PNWHC3 11:54
PROVIDERS: ATTEND Specialist
DX: M51.36 Other intervertebral disc degeneration, lumbar region (principal); M47.816 Spondylosis without myelopathy or radiculopathy, lumbar region; G89.29 Other chronic pain; F17.200 Nicotine dependence, unspecified, uncomplicated
CPT/HCPCS: 99211

== ENCOUNTER 2021-10-15 08:41 | Day surgery (SDC) | payer OTHER ==
[2021-10-15 09:30] VITALS: RESP 16; TEMP 98.4
[2021-10-15] MEDS ORDERED: IOPAMIDOL M200 10 ML VIAL ONE (10:22)
[2021-10-15] MEDS ORDERED: MIDAZOLAM 2 MG/2 ML VIAL ONE (10:22)
[2021-10-15] MEDS ORDERED: methylPREDNISolone ACETATE 80 MG/ML 1 ML VIAL ONE (10:22)
[2021-10-15] MEDS ORDERED: fentaNYL (PF) 50 MCG/ML 2 ML AMP ONE (10:22)
--- NOTE | 2021-10-15 10:42 | P.PCN ---
Date of Procedure: 10/15/21 Procedure(s) Performed: PREOPERATIVE DIAGNOSIS: Lumbar radiculopathy . POSTOPERATIVE DIAGNOSIS: Same as preoperative diagnoses. PROCEDURE 1. Transforaminal epidural steroid injection under fluoroscopic guidance at left L5-S1 level. (Fluoroscopy images stored on file in the radiology Department ) 2. Lumbar epidurogram . ANESTHESIA: Monitored anesthesia care per anesthesia department. EBL: Minimal PROCEDURE INDICATION: The patient with low back pain and radiculopathy symptoms unresponsive to conservative treatment. PROCEDURE DESCRIPTION / TECHNIQUE: The patient was seen and identified in the preoperative area. Risks, benefits, complications, and alternatives were discussed with the patient. The patient agreed to proceed with the procedure and signed the consent. IV was started, and vital signs were stable. Patient was taken to the OR and time out was completed. The patient was placed in the prone position on procedure table and a pillow was placed under the abdomen to reduce lumbar lordosis. The lumbosacral area was prepped and draped in the usual sterile fashion. Critical pause was taken. Vital signs were closely monitored during the procedure. Conscious sedation was used during the procedure to decrease patient s anxiety. Using oblique fluoroscopy, the chin of the `Thais[place]ada dog at left L5-S1 level was identified, and the skin and deeper tissues just below was localized with 1% lidocaine. Subsequently, a 22-gauge 3.5-inch spinal needle was advanced under a tunneled view fluoroscopic guidance just underneath the chin of the `[place] dog at the left L5-S1 Under lateral fluoroscopy, the needle was then advanced to the posterior border of the interforaminal space. After negative aspiration of CSF and blood and with no paresthesias, 1 mL Isovue 200 contrast dye was injected excellent epidurogram and outlining of the nerve root Subsequently, 3 mL of block solution containing 80 mg Depo-Medrol and 2 mL of 0.9% normal saline PF was injected. Needle was removed . At the end of the procedure, skin was cleansed, and bandages were applied. COMPLICATIONS:none DISPOSITION / PLANS: The patient was placed in a supine position and transferred to the recovery area in a stable condition for observation. There was no evidence of lower extremity motor or sensory deficit after the procedure. Patient was discharged from the recovery room after meeting discharge criteria. Home discharge instructions were given to the patient by the staff. The patient was reexamined prior to discharge.
--- NOTE | 2021-10-15 11:04 | FL ---
Intraoperative/procedural fluoroscopic services were provided. Total fluoroscopy time is 4.2 seconds with a total of 1 submitted images to PACS. Please see the operative/procedural note for further deta ils.
[2021-10-15 11:06] VITALS: BP 130/60; PULSE 58
== END 2021-10-15 10:15 | disposition home or self-care (01) ==
LOC: ORPAIN 08:41
PROVIDERS: ATTEND Specialist
DX: M54.16 Radiculopathy, lumbar region (principal); F41.9 Anxiety disorder, unspecified; I10 Essential (primary) hypertension; J44.9 Chronic obstructive pulmonary disease, unspecified; Z79.899 Other long term (current) drug therapy; F17.290 Nicotine dependence, other tobacco product, uncomplicated
CPT/HCPCS: 64483; J2250; J1040; J3010; Q9966; 62323

== ENCOUNTER → 2021-11-02 | Outpatient (CLI) | payer OTHER ==
[2021-11-02 11:33] VITALS: BP 139/83; PULSE 58; RESP 18; TEMP 98.4
--- NOTE | 2021-11-02 14:21 | P.PAINPG ---
PQRS Measure Charge Sheet Comment: A 56 yr old female with a history of severe and chronic low back pain secondary to lumbar degenerative disc diseases and lumbar spondylosis with facet arthropathy presents today for evaluation s/p L TFESI L4-L5. Pt states she experienced 80% pain relief s/p procedure which she is still experiencing till today. Pain level is 2/10 constant, achy/ throbbing in the L aspect of her lumbar spine w radiation towards the LLE. Pain is provoked by walking/bending for periods of 10 min or more. Pain is alleviated with PT in 2019, medications ([place], Tylenol OTC, Lidoderm), topicals, repositioning and rest. Interventional pain procedures completed include L TFESI L4-L5 Patient is currently on Tylenol OTC, [place] from her PCP Patient denies any side effects of the medication(s), denies excessive drowsiness or sleepiness, denies suicidal ideation and reports that the current pain medication is helping to control the pain and improve activities of daily living. Patient denies any motor or sensory deficits. Patient denies any fever or night sweats, denies any change in the bowel movements or urination. Physical Examination: -Constitutional: Cooperative. Not in acute distress . - Neurologic: Cranial nerve II to XII intact. No focal neurological deficits. - Psychatric: Alert & oriented x 3. Matching mood & appropriate affect. Judgment and insight intact. - Musculoskeletal: Cervical spine: Muscle bulk/ tone/ strength in the bilateral upper extremities normal Vertebral body tenderness to palpation over [place] test positive Distraction test positive Facet loading test positive Thoracic spine Muscle bulk / tone/ strength in the bilateral paraspinal muscles normal Vertebral body tender to palpation over Facet loading test positive Lumbar spine: Motor bulk/ tone/ strength lower extremities , thigh and legs : 5/5 Deep tendon reflexes : Normal Knee Jerk. Normal Ankle Jerk . Vertebral body tenderness to palpation over L4, L5 Lumbar Facet Loading Test positive Straight Leg Raise: positive at 30 degrees right side/ left side Gaenslen's Test positive Sacral spine : Severe tenderness over the Sacroiliac joint: right side / left side Range of motion: Flexion of the lumbar spine <60 degrees Range of motion: Extension of the lumbar spine <20 degrees Gaenslen's Test positive Michael's Test positive Noé test: positive right side / left side Thigh Thrust Test Sacral Thrust Test Assessment and plan: Chronic low back pain secondary to lumbar degenerative disc disease , lumbar spondylosis with facet arthropathy without myelopathy Recommendation of L TFESI L4-L5 #3. May need a series of injections, up to 3 within a 6 mo period, for optimal pain relief. Risks, benefits of procedure discussed and pt verbalized understanding. Denies anticoagulant use or medical history of diabetes. All patient questions answered MAPS reviewed and it was appropriate. I have spent less than 30 minutes on patient care today. Dr Benton was available by phone for the evaluation of this patient. The time was used to review the medical records including relevant urine studies and Prescription history (MAPs), review of the available imaging, evaluation and examination of the patient, coordination of care with the medical staff and if applicable referring physicians, as well as creation of the medical record PQRS Narrative: Smoking Status Current every day smoker Hx Alcohol Use (MH) No Home Medications: Ambulatory Orders Albuterol Inhaler [Ventolin Hfa Inhaler] 1 - 2 puff INHALATION BID 11/01/16 Citalopram Hydrobromide [CeleXA] 40 mg PO BID 11/01/16 Ibuprofen [Motrin] 800 mg PO Q8H PRN 11/01/16 atenoloL 100 mg PO BID 08/18/17 rOPINIRole HCL [Requip] 3 mg PO HS 08/18/17 Fluticasone Propion/Salmeterol [Advair 250-50 Diskus] 1 inhalation PO BID 09/09/21 Losartan Potassium [Cozaar] 100 mg PO DAILY 09/09/21 hydroCHLOROthiazide [Hydrodiuril] 50 mg PO DAILY 09/09/21 Acetaminophen Tab [Tylenol] 650 mg PO Q6H PRN 10/15/21 Controlled Substance Measures - Controlled Substance Measures Is patient prescribed a controlled substance at discharge?: No
== END ==
LOC: PNWHC3 10:45
PROVIDERS: ATTEND Specialist
DX: M51.36 Other intervertebral disc degeneration, lumbar region (principal); M47.816 Spondylosis without myelopathy or radiculopathy, lumbar region; G89.29 Other chronic pain; F17.200 Nicotine dependence, unspecified, uncomplicated
CPT/HCPCS: 99211

== ENCOUNTER → 2021-11-23 | Outpatient (CLI) | payer OTHER ==
[2021-11-23 15:35] LABS: Basophils # (A) 0.02 X 10*3/uL (0.00-0.10); Basophils % (A) 0.2 %; Eosinophils # (A) 0.01 X 10*3/uL (0.04-0.35); Eosinophils % (A) 0.1 %; HCT 34.1 % (37.2-46.3); HGB 12.3 g/dL (12.0-15.0); Immature Grans, Automated 0.7 %; Lymphocytes # (A) 1.49 X 10*3/uL (0.90-5.00); Lymphocytes % (A) 13.6 %; MCH 32.9 pg (27.0-32.0); MCHC 36.1 g/dL (32.0-37.0); MCV 91.2 fL (80.0-97.0); Mean Platelet Volume 8.6 fL (9.5-12.2); Monocytes # (A) 0.74 X 10*3/uL (0.20-1.00); Monocytes % (A) 6.7 %; NRBC Per 100 WBC 0 /100 WBCS (0.0-0.0); Neutrophils # (A) 8.63 X 10*3/uL (1.80-7.70); Neutrophils % (A) 78.7 %; Platelet Count 442 X 10*3/uL (140-440); RBC 3.74 X 10*6/uL (4.10-5.20); RDW 12.8 % (11.5-14.5); WBC 10.97 X 10*3/uL (4.50-10.00)
[2021-11-23 17:04] LABS: ALT 19 U/L (8-44); AST 20 U/L (13-35); African American GFR (CKD) 111.8 (60.0-200.0); Albumin 4.9 g/dL (3.8-4.9); Albumin/Globulin Ratio 2.34 (1.60-3.17); Alkaline Phosphatase 68 U/L (41-126); BUN/Creat Ratio 13.87 Ratio (12.00-20.00); Blood Urea Nitrogen 9.4 mg/dL (9.0-27.0); Calcium 9.9 mg/dL (8.7-10.3); Carbon Dioxide 22.9 mmol/L (20.0-27.5); Chloride 84 mmol/L (96-109); Chol/HDL Ratio 2.08 Ratio; Globulin 2.1 g/dL (1.6-3.3); Glucose 122 mg/dL (70-110); LDL Cholesterol,Calculated 105.4 mg/dL (0.0-131.0); Non-African American GFR(CKD) 96.5 (60.0-200.0); Potassium 3.6 mmol/L (3.5-5.5); Sodium 123 mmol/L (135-145)
== END | disposition home or self-care (01) ==
LOC: LABWHC1 10:01
PROVIDERS: ATTEND Family Medicine
DX: Z00.00 Encounter for general adult medical examination without abnormal findings (principal); I10 Essential (primary) hypertension
CPT/HCPCS: 36415; 80053; 80061; 82607; 82746; 83036; 84443; 85025

== ENCOUNTER 2021-12-09 09:07 | Emergency (ER) | payer MEDICARE, OTHER ==
[2021-12-09 09:13] VITALS: TEMP 97.9
[2021-12-09] MEDS ORDERED: DEXAMETHASONE SOD PHOSPHATE 10 MG/ML 1 ML VIAL IM STA (09:38)
--- NOTE | 2021-12-09 09:46 | ED ---
General Adult HPI - General Chief complaint: Extremity Injury, Upper Stated complaint: shoulder pain Time Seen by Provider: 12/09/21 09:32 Source: patient, RN notes reviewed, old records reviewed Mode of arrival: ambulatory Limitations: no limitations - History of Present Illness Initial comments: 56-year-old female presents to the emergency room with complaints of the right sided neck pain radiating down her right arm to her elbow. She denies any trauma. Patient states this has been ongoing for a week and she has been trying Tylenol , Motrin, heat and ice, Lidoderm patches and did take 2 [place] this morning with no relief. She called her primary care doctor who recommended she come to the emergency room for x-rays and pain medication. Patient states that she does have a metal plate in her neck from 2003. She does have an appointment with Dr. Rosales this Tuesday. -: week(s) (1) Location: neck Radiation: distal (right shoulder) Quality: constant Consistency: constant Improves with: none Associated Symptoms: denies other symptoms Treatments Prior to Arrival: NSAID, Aspirin, cold therapy, heat therapy, other (2 norco 5mg, lidoderm) - Related Data Home Medications Medication Instructions Recorded Confirmed Albuterol Inhaler [Ventolin Hfa 1 - 2 puff INHALATION BID 11/01/16 11/02/21 Inhaler] Citalopram Hydrobromide [CeleXA] 40 mg PO BID 11/01/16 11/02/21 Ibuprofen [Motrin] 800 mg PO Q8H PRN 11/01/16 11/02/21 atenoloL 100 mg PO BID 08/18/17 11/02/21 rOPINIRole HCL [Requip] 3 mg PO HS 08/18/17 11/02/21 Fluticasone Propion/Salmeterol 1 inhalation PO BID 09/09/21 11/02/21 [Advair 250-50 Diskus] Losartan Potassium [Cozaar] 100 mg PO DAILY 09/09/21 11/02/21 hydroCHLOROthiazide [Hydrodiuril] 50 mg PO DAILY 09/09/21 11/02/21 Acetaminophen Tab [Tylenol] 650 mg PO Q6H PRN 10/15/21 11/02/21 Previous Rx's Medication Instructions Recorded predniSONE 50 mg PO DAILY #5 tab 12/09/21 Allergies Allergy/AdvReac Type Severity Reaction Status Date / Time No Known Allergies Allergy Verified 12/09/21 09:13 Review of Systems ROS Statement: Those systems with pertinent positive or pertinent negative responses have been documented in the HPI. ROS Other: All systems not noted in ROS Statement are negative. Past Medical History Past Medical History: Asthma, COPD Additional Past Medical History / Comment(s): chronic back pain History of Any Multi-Drug Resistant Organisms: None Reported Past Surgical History: Back Surgery, Orthopedic Surgery Additional Past Surgical History / Comment(s): partial discectomy in lumbar region, cyst in knee removed Past Anesthesia/Blood Transfusion Reactions: No Reported Reaction Past Psychological History: No Psychological Hx Reported Smoking Status: Current every day smoker Past Alcohol Use History: None Reported Past Drug Use History: None Reported General Exam Limitations: no limitations General appearance: alert, in no apparent distress Head exam: Present: atraumatic, normocephalic, normal inspection Eye exam: Present: normal appearance. Absent: scleral icterus, conjunctival injection, periorbital swelling Neck exam: Present: normal inspection, tenderness (Right trapezius), full ROM. Absent: meningismus, lymphadenopathy, thyromegaly Respiratory exam: Absent: respiratory distress, accessory muscle use Cardiovascular Exam: Present: regular rate Extremities exam: Present: full ROM. Absent: tenderness Right Shoulder Exam: Present: full ROM, tenderness. Absent: swelling, erythema, tenderness over AC joint Upper Arm exam: Absent: tenderness Elbow exam: Present: full ROM Forearm Wrist exam: Present: full ROM Hand Wrist exam: Present: full ROM Vascular: Present: normal capillary refill. Absent: vascular compromise Back exam: Present: normal inspection. Absent: tenderness, CVA tenderness (R), CVA tenderness (L), muscle spasm, paraspinal tenderness, vertebral tenderness, rash noted Neurological exam: Present: alert, oriented X3, normal gait Psychiatric exam: Present: normal affect, normal mood Skin exam: Present: warm, dry, normal color. Absent: cyanosis, diaphoretic, petechiae, pallor Course Vital Signs 12/09/21 12/09/21 09:09 11:05 Temperature 97.9 F Pulse Rate 76 78 Respiratory 16 18 Rate Blood Pressure 159/84 134/80 O2 Sat by Pulse 99 99 Oximetry Medical Decision Making - Medical Decision Making C-spine x-ray shows mild degenerative disc changes. There is a fusion of C5 C6 with foraminal narrowing slightly greater on the right. She has no focal neurological deficits. She ambulates with a steady gait. She denies any headache or visual changes. She was given a shot of Decadron and states that she is already starting to feel relief. She will be prescribed prednisone for the next 5 days for her radicular symptoms. She states she has an appointment with Dr. Rosales this Tuesday. She was directed to continue her previously prescribed pain medication including [place], Motrin and Lidoderm. Patient is agreeable to this plan of care. Case discussed with Dr. Ruiz Disposition Clinical Impression: Neck pain on right side Disposition: HOME SELF-CARE Condition: Good Instructions (If sedation given, give patient instructions): Neck Pain (ED) Additional Instructions: Take the prednisone once a day for the next 5 days for radicular symptoms. Keep your appointment with Dr. Rosales as scheduled Tuesday. Return to the emergency room with any new or concerning symptoms. Prescriptions: predniSONE 50 mg PO DAILY #5 tab Is patient prescribed a controlled substance at d/c from ED?: No Referrals: Aiden Santana MD [Primary Care Provider] - 1-2 days Dexter Rosales DO [Doctor of Osteopathic Medicine] - 1-2 days Time of Disposition: 10:56
--- NOTE | 2021-12-09 10:51 | XR ---
EXAMINATION TYPE: XR cervical spine comp DATE OF EXAM: 12/09/2021 COMPARISON: No comparisons available at this time HISTORY: Neck pain TECHNIQUE: 5 view cervical spine FINDINGS: There is an anterior cervical fusion C5-6. Prevertebral space appears normal. Posterior spi nal lamellar line is intact. Posterior disc space narrowing is likely present C4-5 and C6-7. There is foraminal stenosis CT 3 4 cc 5 6 on the right and mild foraminal narrowing C5-6 on the left. Odontoi d is limited with overlying maxilla. IMPRESSION: 1. Mild degenerative disc changes. 2. Anterior cervical fusion C5-6 with foraminal narrowing slightly greater on the right. 3. No acute osseous abnormality radiographically apparent. 4. Note is made of vascular calcification likely at the left carotid bifurcation.
[2021-12-09 11:53] VITALS: BP 134/80; PULSE 78; RESP 18
== END 2021-12-09 11:05 | disposition home or self-care (01) ==
LOC: EC 09:07
DX: M54.2 Cervicalgia (principal); J44.9 Chronic obstructive pulmonary disease, unspecified; F17.200 Nicotine dependence, unspecified, uncomplicated; Z79.51 Long term (current) use of inhaled steroids
CPT/HCPCS: 72050; 99283; 96372; J1100

== ENCOUNTER → 2021-12-29 | Outpatient (CLI) | payer MEDICARE ==
--- NOTE | 2021-12-30 07:36 | MR ---
EXAMINATION TYPE: MR cervical spine wo con DATE OF EXAM: 12/29/2021 INDICATION: Patient age:Female; 56 years old; Reason for study: M54.12 RADICULOPATHY, CERVICAL REGION; COMPARISON: CT neck 05/31/2018., MRI cervical spine for 2017 TECHNIQUE: Multi planar, multi sequence imaging was performed utilizing: T1-weighted, T2-weighted, an d turbo inversion recovery imaging of the cervical spine. IV Contrast: none FINDINGS: Alignment: The cervical vertebral bodies have preserved heights. Alignment is within normal limits gi darren patient positioning. Bones: Postsurgical changes with anterior fixation at C5 and C6. Multilevel degenerative disc disease is noted and most pronounced at the C5-C6. vertebral levels. I T2 T1 signal probable C4 vertebral mai dy hemangioma. Cord: The spinal cord is unremarkable with regards to their signal intensity and morphology. Discs: The disc surgically absent and C5-C6. C2-C3: No significant disc pathology. The spinal canal is patent. No neural foraminal stenosis. C3-C4: A eccentric right disc osteophyte complex is present which minimally narrows the ventral subar achnoid space. Bilateral facet and uncovertebral joint arthropathy are present with moderate right neural foraminal stenosis. The left neural foramen is patent. C4-C5: No significant disc pathology. The spinal canal is patent. Bilateral facet and uncovertebral joint arthropathy are present with moderate bilateral neural foraminal stenosis. C5-C6: A disc osteophyte complex is present with mild spinal canal stenosis. Bilateral facet and unc overtebral joint arthropathy are present with moderate right neural foraminal stenosis. The left neur al foramen is patent. C6-C7: Persistent disc material with superimposed probable is present with moderate spinal canal sten osis. Bilateral facet and uncovertebral joint arthropathy are present with mild bilateral neural for aminal stenosis. C7-T1: No significant disc pathology. The spinal canal is patent. No neural foraminal stenosis. IMPRESSION: 1. Postsurgical changes with persistent disc material at C6-C7 has increased after surgery when comp aring to 2018 resulting in moderate spinal canal stenosis. 2. Multilevel disc degeneration changes with osteoarthritic changes with varying degrees of neural f oraminal stenosis.
== END | disposition home or self-care (01) ==
LOC: RADMRIMAIN 15:05
PROVIDERS: ATTEND Orthopaedic Surgery
DX: M50.123 Cervical disc disorder at C6-C7 level with radiculopathy (principal); M48.02 Spinal stenosis, cervical region
CPT/HCPCS: 72141

== ENCOUNTER → 2022-01-01 | Outpatient (CLI) | payer MEDICARE ==
--- NOTE | 2022-01-01 08:29 | CT ---
EXAMINATION TYPE: CT lumbar spine wo con CT DLP: 1009 mGycm, Automated exposure control for dose reduction was used. DATE OF EXAM: 01/01/2022 7:39 AM COMPARISON: Lumbar spine radiograph 06/01/2021. CLINICAL INDICATION:Female, 56 years old with history of M48.06 lumbar stenosis; TECHNIQUE: Multiple axial images were obtained from the midportion of T11 through the sacroiliac yared nts. No intravenous contrast viscera. Soft tissue and bone windows in coronal and sagittal planes we re obtained and reviewed. FINDINGS: Alignment: There are 5 lumbar type vertebral bodies. Minimal grade 1 anterolisthesis of L4 on L5 and minimal retrolisthesis of L5 on S1. No pars defects. Mild levocurvature of the lumbar spine. Bone: No evidence of fracture is identified. Degenerative disc disease at L5-S1 with disc space narr owing, endplate cirrhosis, subchondral cyst formation, and anterior aspect process. Discs: T12-L1: No spinal canal or neural foraminal stenosis is identified. L1-L2: No spinal canal or neural foraminal stenosis is identified. L2-L3: No spinal canal or neural foraminal stenosis is identified. L3-L4: No spinal canal or neural foraminal stenosis is identified. L4-L5: Minimal grade 1 anterolisthesis of L4 on L5 with uncovering of the disc. No central canal micah nosis. The neural foramina are patent bilaterally. L5-S1: Central disc protrusion with mild effacement of the anterior thecal sac. Mild left neuroforami nal stenosis. The right neural foramen is patent. Facet arthropathy. Other: Atherosclerosis. IMPRESSION: 1. No evidence of fracture of the lumbar spine. 2. L5-S1 degenerative disc disease with disc herniation resulting in mild spinal canal stenosis. Mild left neuroforaminal stenosis at this level. 3. Minimal grade 1 anterolisthesis of L4 on L5 and minimal retrolisthesis of L5 on S1. No pars defect s.
== END ==
LOC: RADCTMAIN 07:20
PROVIDERS: ATTEND Orthopaedic Surgery
DX: M48.061 Spinal stenosis, lumbar region without neurogenic claudication (principal)
CPT/HCPCS: 72131

== ENCOUNTER → 2022-02-22 | Outpatient (CLI) | payer MEDICARE | END | disposition home or self-care (01) | LOC: LABPAT 02-17 10:04 | PROVIDERS: ATTEND Orthopaedic Surgery | DX: Z53.9 Procedure and treatment not carried out, unspecified reason (principal) ==

== ENCOUNTER → 2022-03-25 | Outpatient (CLI) | payer MEDICARE ==
[2022-03-25 22:29] LABS: Basophils # (A) 0.03 X 10*3/uL (0.00-0.10); Basophils % (A) 0.2 %; Eosinophils # (A) 0.01 X 10*3/uL (0.04-0.35); Eosinophils % (A) 0.1 %; HCT 35.2 % (37.2-46.3); HGB 12.2 g/dL (12.0-15.0); Immature Grans, Automated 0.9 %; Lymphocytes # (A) 1.04 X 10*3/uL (0.90-5.00); MCH 32.2 pg (27.0-32.0); MCHC 34.7 g/dL (32.0-37.0); MCV 92.9 fL (80.0-97.0); Mean Platelet Volume 8.8 fL (9.5-12.2); Monocytes # (A) 0.36 X 10*3/uL (0.20-1.00); Monocytes % (A) 2.8 %; NRBC Per 100 WBC 0 /100 WBCS (0.0-0.0); Neutrophils # (A) 11.44 X 10*3/uL (1.80-7.70); Platelet Count 489 X 10*3/uL (140-440); RBC 3.79 X 10*6/uL (4.10-5.20); RDW 12.2 % (11.5-14.5)
[2022-03-25 22:44] LABS: African American GFR (CKD) 110.7 (60.0-200.0); Anion Gap 15.1 mmol/L (10.00-18.00); BUN/Creat Ratio 15.71 Ratio (12.00-20.00); Carbon Dioxide 22.9 mmol/L (20.0-27.5); Non-African American GFR(CKD) 95.5 (60.0-200.0); Potassium 3.7 mmol/L (3.5-5.5)
[2022-03-25 22:56] LABS: INR 0.92 (0.90-1.11); Prothrombin Time 10.4 sec (9.9-11.9)
== END | disposition home or self-care (01) ==
LOC: LABWHC1 11:54
PROVIDERS: ATTEND Orthopaedic Surgery
DX: Z01.812 Encounter for preprocedural laboratory examination (principal); Z22.322 Carrier or suspected carrier of Methicillin resistant Staphylococcus aureus; M48.02 Spinal stenosis, cervical region
CPT/HCPCS: 36415; 80048; 85025; 85610; 87070

== ENCOUNTER 2022-04-01 08:56 | Inpatient (IN) | payer MEDICARE ==
[~2022-04-01 08:56] MED LIST changes: +ACETAMINOPHEN TAB 500 MG TAB PO PRN; +DEXAMETHASONE SOD PHOSPHATE 4 MG/ML 1 ML VIAL IV ONE; +GABAPENTIN 300 MG CAP PO PRN; -LACTATED RINGERS 1,000 ML IV SCH; -LIDOCAINE 1% (10MG/ML) FOR IV START INTRADERMA PRN; +ONDANSETRON 4 MG/2 ML VIAL IVP ONE; +ONDANSETRON 4 MG/2 ML VIAL IVP PRN; +TRANEXAMIC ACID IN NACL,ISO-OS 1,000 MG in SALINE 1 100ML.BAG IVPB PRN
[2022-04-01] MEDS: LACTATED RINGERS 1,000 ML IV SCH (13:12)
[2022-04-01 13:47] LABS: ALT 13 U/L (4-34); African American GFR (CKD) >90 (>60 ml/min/1.73 sqM); Albumin 4.5 g/dL (3.5-5.0); Anion Gap 9 mmol/L; Blood Urea Nitrogen 14 mg/dL (7-17); Calcium 9.2 mg/dL (8.4-10.2); Carbon Dioxide 24 mmol/L (22-30); Chloride 98 mmol/L (98-107); Glucose 92 mg/dL (74-99); Non-African American GFR(CKD) >90 (>60 ml/min/1.73 sqM); Sodium 131 mmol/L (137-145); Total Bilirubin 0.4 mg/dL (0.2-1.3); Total Protein 7.2 g/dL (6.3-8.2)
[2022-04-01 14:02] LABS: AST 22 U/L (14-36); Alkaline Phosphatase 62 U/L (38-126); Potassium 4.3 mmol/L (3.5-5.1)
[2022-04-01] MEDS ORDERED: SUCCINYLCHOLINE CHLORIDE 200 MG/10 ML VIAL IV ONE (16:24)
[2022-04-01] MEDS ORDERED: ePHEDrine 50 MG/ML 1 ML VIAL ONE (16:24)
[2022-04-01] MEDS ORDERED: KETAMINE 10 MG/ML 20 ML VIAL ONE (16:24)
[2022-04-01] MEDS ORDERED: LIDOCAINE 2% INJ 20 MG/ML (2 ML VIAL) ONE (16:24)
[2022-04-01] MEDS ORDERED: fentaNYL (PF) 50 MCG/ML 2 ML AMP ONE (16:24)
[2022-04-01] MEDS ORDERED: MIDAZOLAM 2 MG/2 ML VIAL ONE (16:24)
[2022-04-01] MEDS ORDERED: HYDROmorphone (PF) 1 MG/ML ONE (16:24)
[2022-04-01] MEDS ORDERED: PROPOFOL 10 MG/ML 20 ML VIAL IV ONE (16:24)
[2022-04-01] MEDS ORDERED: THROMBIN (BOVINE) 5,000 UNIT VIAL TOPICAL ONE (17:25)
[2022-04-01] MEDS ORDERED: GELATIN SPONGE,ABSORB (LARGE) 1 EACH SPONGE TOPICAL ONE (17:25)
[2022-04-01] MEDS ORDERED: LACTATED RINGERS 1,000 ML IV ONE (18:28)
[2022-04-01] MEDS ORDERED: MAGNESIUM HYDROXIDE 2,400 MG/10 ML CUP PO PRN (18:31)
[2022-04-01] MEDS: HYDROmorphone 0.5 MG/0.5 ML SYRINGE IVP PRN (18:56)
[2022-04-01] MEDS: GABAPENTIN 300 MG CAP PO SCH (21:10)
--- NOTE | 2022-04-01 21:58 | FL ---
EXAMINATION TYPE: FL guidance operating room, XR cervical spine limited DATE OF EXAM: 04/01/2022 CLINICAL HISTORY: Neck pain. TECHNIQUE: Fluoroscopy. Intraoperative limited views cervical spine. COMPARISON: Outside cervical spine x-ray January 07, 2022. FINDINGS: Fluoroscopic guidance was provided during discectomy and anterior cervical fusion procedur e performed by Dr. Rosales. A total of 20 seconds of fluoroscopic time was utilized during the pr ocedure and 5 spot images was acquired. Intraoperative images acquired show removal of anterior fusion plate C5-C6 level with new anterior fu chema plate C5-C7 levels and new metallic disc material C6-C7 level. Alignment appears satisfactory on intraoperative images obtained. IMPRESSION: As Above.
--- NOTE | 2022-04-01 23:07 | CT ---
EXAMINATION TYPE: CT cervical spine wo con DATE OF EXAM: 04/01/2022 COMPARISON: None HISTORY: cspine fusion CT DLP: mGycm Automated exposure control for dose reduction was used. Images obtained from the skull base to T1 vertebra without contrast. There is a plate with screws fusing anteriorly the cervical spine from level of C5-C7. There is disc prosthesis at C5-6 and C6-7. The posterior elements are intact. There is minimal facet arthropathy. T he prevertebral soft tissues are intact. There is minimal soft tissue air on the right paratracheal r egion related to the recent surgery. There is drain in the right paratracheal region. IMPRESSION: Multilevel fusion surgery. No complicating process seen.
[2022-04-01] MEDS: ACETAMINOPHEN TAB 500 MG TAB PO SCH (23:08)
[2022-04-02] MEDS: CYCLOBENZAPRINE 10 MG TAB PO PRN ×2 (02:21→23:41)
[2022-04-02] MEDS: ACETAMINOPHEN TAB 500 MG TAB PO SCH ×4 (06:07→23:41)
--- NOTE | 2022-04-02 07:23 | P.OP ---
Date of Procedure: 04/01/22 Preoperative Diagnosis: 1. 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 C6-7 spondylosis with stenosis 3. UE radiculopathy and weakness 4. Mechanical neck pain Postoperative Diagnosis: 1. 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 C6-7 spondylosis with stenosis 3. UE radiculopathy and weakness 4. Mechanical neck pain Procedure(s) Performed: 1. C6-7 anterior discectomy and fusion (97540) 2. Removal of hardware anterior cervical spine C5-6 (91904) 3. Exploration of fusion anterior C5-6 (60429) 4. Application of non-integrated 3 segment anterior plate (32364) 5. Insertion of biomechanical device C6-7 (34268) Implants: -Miguel [place] 8mm 12 deg lordotic -Cowley Plate 3 segment Anesthesia: GETA Surgeon: Dexter Rosales Integration Technician #1: Steve Palmer (Was present and assisted with all aspectes of the case from positioning to dressing placement. ) Estimated Blood Loss (ml): 25 IV fluids (ml): 1,000 Urine output (ml): 250 Pathology: none sent Condition: stable Disposition: PACU Indications for Procedure: Ms. Dela Cruz is presenting for evaluation of cervical pain. It was my pleasure to have seen and examined Ms. Dela Cruz. In our visit today we have had a chance to go over subjective complaints, physical examination findings and treatments including the natural course history without intervention and various interventional options. The patients imaging demonstrates: XRay Cervical multiview (Lateral, Flexion, Extension, AP, Oblique) 5 views completed at [facility] taken on 01/07/22 of Cervical Spine: Images reviewed demonstrate post surgical changes with anterior C5-[address]. There is some adjacent segment disease C4-5 noted with disc height loss. Screws and plate are in position without evidence of fracture or loosening. Overall alignment is flattened lordosis. No instability noted at this time. MRI scan from12/29/21 completed at [facility]: Images reviewed demonstrated again post surgical changes C5-6. There is residual, moderate to severe central stenosis at C5-6 due to continued disc material as well as posterior based ligamental hypertrophy causing stenosis at this level. There are no acute fractures noted. No instability noted at this time. C0-1 and C1-2 are stable. Disc material extends down to C7 level as well. On physical exam, Ms. Dela Cruz demonstrates significantly restricted cervical ROM with significnat pain with flexion/extension. Patient does also demonstrate right upper extremity weakness diffusely through all major muscle groups. Furthermore the patient is hyperreflexic bilaterally as well. Lastly the patient does have bilateral Hoffmans. I have explained to the patient that as their condition progresses it will cause further neurological deficits and eventual paralysis. Based on the patients imaging, physical exam, and the rapid progression and disabling nature of their symptoms, at this time I recommend surgery in the form of a: cervical (C5-C7) revision ACDF. I discussed the risk and benefits of this procedure at length with Ms. Dela Cruz. The patient and her family agreed to considered pursuing the procedure abovementioned. Prior to surgery, she should follow up with her PCP (Cardio, ID, IM etc) for clearance. Questions were invited and answered, and the patient wishes to proceed as outlined below. Currently, I am recommendin. Stage I: cervical (C5-C7) revision ACDF Stage II: separate date C5-T1 posterior decompression and fusion. Description of Procedure: The patient was seen and examined in the preoperative area. All preoperative protocols were followed. Informed consent was obtained risks and benefits of the procedure were discussed at length. Risks including bleeding infection damage to the surrounding tissue and risk of re-operation were discussed with the patient. Risk of anesthesia up to and including was a discussed with the patient. These are outlined in the risk review. They were willing to accept these risks and all the risks of surgery. The patient was given a weight-based dose of antibiotics in the form of 2 g Ancef. The patient was seen and evaluated by the anesthesia team who deemed them fit for surgery. The site was marked, the patient was willing to proceed with the procedure. The patient was transferred to the operative suite by the Department of anesthesia. They were then drifted off to sleep by the department anesthesia and GETA was performed. The patient tolerated this well. Marroquin catheter was placed by nursing staff, a-traumatically. Once confirmation of lines and ventilation the patient was transferred to a Supine Misha table very carefully. All bony prominences including wrists, elbows, axilla, chest, hips, and thighs, and feet were padded very well. Special attention was paid to the genitalia, and these were padded accordingly. SCDs were placed on bilateral lower extremities and were connected. Arms were well padded and placed at their side thumbs up. Once in position, again we confirmed good ventilation capabilities and that lines were running appropriately. The patients Cervical spine was then exposed. 1010s were placed outlining the incision site. Standard alcohol was used to clean the incision site and allowed to dry. C-arm was used to bio-stuart the patient and confirm level for incision which was marked with a skin marker. Operative briefing was performed with all teams and everyone in agreement to proceed. The patient was then prepped and draped in a normal sterile fashion. Timeout was then performed, and all parties agreed with the procedure to be performed. Transverse skin incision was then made on the right side of the patients neck 3 cm and dissection taken down to the platysma which was split transversely. Sub platysma flap was made, and interval identified between SCM and medial structures. Omohyoid was visualized and protected. Blunt dissection taken down to the anterior cervical facia which was identified. Blunt prob was then placed and lateral image taken which confirmed levels for operation. These levels were then marked with a bovi. Subperiosteal dissection of the longissimus muscles were then done over these levels identifying uncovertebral joints bilaterally. Retractor was then placed deep to these muscles and held in place with a bed arm. Dissection was then done around the plate at C5-6 and the hardware ex posed. The hardware was then removed and the fusion was explored in this area. There was reasonable fusion mass here, but the hardware was loose and there was question of motion. Then caspar pins were placed into C6 and C7 and a phylicia rongure was used to release the disc here. Then disctractor placed and gentle distraction was taken out over this level. Complete discectomy was performed with phylicia rongure, curettes, kerrison rongure and high speed meli. Anterior and posterior osteophytes removed with meli and minimall endplate burring was performed. PLL was identified and was resected using a 6-0 upbiting curette and then a 3-0 kerrison. B/l foraminotomies performed with kerrison. Motors run and they were stable. The cage was then sized with trials under lateral image. Once appropriate size obtained the cage was selected and filled with autograft and allograft. The cage was then impacted into position under lateral images. Motors run after placement were stable. The cage was tested and stable. Distractor pins were then removed and the anterior osteophytes and bony overgrowth was burred down from C5-7. Then a 3 segment non-integrated anterior plate was selected and placed. Screws were placed into C7 b/l in a fixed fashion followed by into C5 in a variable fashion. This was due to question of continued motion at these segments. The screws all had good purchaced and the locking mechanism set. Final AP and Lateral images confirmed good placement of hardware with good reduction and alignment. The wound was then copiusly irrigated with NSS. Surgicel placed deep in the wound. A deep drain placed out a separate incision and sewed into place. Layered closure then performed with 3-0 Vicryl in the platysma and sub- Q tissue. 4-0 Strata fix in the subcuticular tissue. The wound was then cleaned, and dried and skin glue placed. Once glue dried an Opifoam was placed. The patient was then transferred back to their hospital bed a-traumatically. T he drain continued to hold suction. They were placed in a soft collar. They were then awakened by the department of anesthesia having tolerated the procedure well without complications.
[2022-04-02] MEDS: LOSARTAN 50 MG TAB PO SCH (07:54)
[2022-04-02] MEDS: atenoloL 50 MG TAB PO SCH ×2 (07:55→20:52)
[2022-04-02] MEDS: hydroCHLOROthiazide 25 MG TAB PO SCH (07:55)
[2022-04-02] MEDS: diazePAM 5 MG TAB PO SCH ×3 (07:55→20:52)
[2022-04-02] MEDS: CITALOPRAM HYDROBROMIDE 20 MG TAB PO SCH (07:55)
[2022-04-02] MEDS: GABAPENTIN 300 MG CAP PO SCH ×2 (07:56→20:52)
[2022-04-02] MEDS: NON FORMULARY DRUG (Linaclotide [Linzess] 145 MCG Capsule) PO SCH (08:05)
--- NOTE | 2022-04-02 08:49 | P.PN ---
Subjective Progress Note Date: 04/02/22 Principal diagnosis: Cervical stenosis Adjacent segment disease Patient seen and examined this morning. Patient is sitting upright in bed. Surgical dressing is intact, MARILEE drain present. Hard cervical collar was adjusted. Patient states since the procedure she has improved radiculopathy to the right upper extremity, she states that she no longer has shooting "electrical" pain in her arm. Patient is currently NPO for stage II posterior cervical fusion for later this afternoon. She has been ambulatory to the restroom, tolerating activity. Patient has been afebrile, denies nausea/vomiting, or chest pain. Objective - Vital Signs Vital signs: Vital Signs Temp 98.2 F 04/02/22 07:18 Pulse 87 04/02/22 07:18 Resp 18 04/02/22 07:18 BP 188/98 04/02/22 07:18 Pulse Ox 96 04/02/22 07:18 FiO2 Intake & Output 04/01/22 04/02/22 04/02/22 18:59 06:59 18:59 Intake Total 1750 200 Output Total 140 810 Balance 1610 -610 Weight 52.2 kg 52.2 kg Intake: IV 1750 200 Output: Drainage 5 Anterior Neck 5 Urine 115 800 Estimated Blood Loss 25 5 Other: Voiding Method Indwelling Catheter - Exam Physical Examination General: The patient is awake and alert, in no acute distress Skin: Skin is warm and dry with no obvious rashes or lesions. Hairy patches absent, no dorsal skin dimples, no cafe au lait spots. Surgical incisions in the anterior cervical, MARILEE drain present. Eye: Pupils are equal, round and reactive to light, extra-ocular movements are intact; there is normal conjunctiva bilaterally. Neck: The neck is supple, there is slight tenderness and limited ROM, hard cervical collar present. Cardiovascular: There is a regular rate and rhythm. No murmur, rub or gallop is appreciated. Respiratory: Lungs are clear to auscultation, respirations are non-labored, breath sounds are equal. Gastrointestinal: Soft, non-distended, non-tender abdomen. Back: There is no tenderness to palpation in the midline, paralumbar, parathoracic or buttocks region. There is no obvious deformity . Musculoskeletal: ROM limited secondary to pain and stiffness from surgical procedure. Muscle strength in all major muscle groups of bilateral upper extremities 4/5, bilateral lower extremities 5/5. Neurological: CN 2-12 intact. There are no obvious motor or sensory deficits. Movement and coordination equal and intact. Sensory exam to light touch intact C5-T1 and intact from L2-S1. Reflexes 2/4 in bilateral upper and lower extremities. Negative Hoffmans, babinski, and clonus signs. Psychiatric: Cooperative, appropriate mood & affect, normal judgment. - Labs CBC & Chem 7: 04/01/22 13:05 Labs: Abnormal Lab Results - Last 24 Hours (Table) 04/01/22 Range/Units 13:05 Sodium 131 L (137-145) mmol/L Creatinine 0.48 L (0.52-1.04) mg/dL Assessment and Plan Assessment: Postop day 1: Stage I revision C5-C7 ACDF Cervical stenosis Adjacent segment disease Plan: -Appreciate creative consultant and team management. -NPO for Stage II posterior cervical fusion later this afternoon. -Activity: Ambulate QID, OOB all meals, up and about, limit lifting bending twisting to less than 5 lbs. Use walker or cane if needed for stability. -Daily PT/OT, increase ambulation strength and balance. -Hard cervical collar at all times, may remove for showers -Pain control: Adequate at this time -Meds: reviewed -GI ppx: senna, Miralax -DVT PPX: Mechanical -Hygiene: Shower today. Maintain dressing clean and dry. -Drains: Maintain for now. -Encourage IS 10x/hr -Dispo: Anticipate discharge home with homecare within the next 48-72hrs *I reviewed and discussed this case with my attending Dr. Rosales, whom has reviewed this chart and films and is in agreement with assessment and plan of care as outlined above. I have personally seen and examined the patient, performed the documentation and the assessment and plan as written. Number of minutes spent on the visit: 20m.
[2022-04-02 09:12] LABS: Basophils # (A) 0.02 X 10*3/uL (0.00-0.10); Basophils % (A) 0.1 %; Eosinophils # (A) 0.02 X 10*3/uL (0.04-0.35); Eosinophils % (A) 0.1 %; HCT 33.3 % (37.2-46.3); HGB 11.4 g/dL (12.0-15.0); Immature Grans, Automated 0.7 %; Lymphocytes # (A) 2.42 X 10*3/uL (0.90-5.00); Lymphocytes % (A) 14.6 %; MCH 32.6 pg (27.0-32.0); MCHC 34.2 g/dL (32.0-37.0); MCV 95.1 fL (80.0-97.0); Mean Platelet Volume 8.7 fL (9.5-12.2); Monocytes # (A) 1.28 X 10*3/uL (0.20-1.00); Monocytes % (A) 7.7 %; NRBC Per 100 WBC 0 /100 WBCS (0.0-0.0); Neutrophils # (A) 12.72 X 10*3/uL (1.80-7.70); Neutrophils % (A) 76.8 %; Platelet Count 464 X 10*3/uL (140-440); RDW 12.4 % (11.5-14.5); WBC 16.57 X 10*3/uL (4.50-10.00)
[2022-04-02 09:27] LABS: African American GFR (CKD) 120.4 (60.0-200.0); BUN/Creat Ratio 16.92 Ratio (12.00-20.00); Blood Urea Nitrogen 9.2 mg/dL (9.0-27.0); Calcium 9.4 mg/dL (8.7-10.3); Carbon Dioxide 27.1 mmol/L (20.0-27.5); Non-African American GFR(CKD) 103.9 (60.0-200.0); Potassium 4.2 mmol/L (3.5-5.5)
--- NOTE | 2022-04-02 12:39 | P.HPOR ---
History of Present Illness H&P Date: 04/01/22 .D:Date: 02/17/22 : 10:40am .T:Title: [facility] Date of :[birth year] Age: 56 year Height: 5'2" Weight: 115 lbs BMI: 21.03 kg/m2 Occupation: Disabled VAS: 8 CHIEF COMPLAINT: pre-operative review- revision C5-C7 ACDF DOI: Chronic DOS: hx C5-C6 ACDF in 2018 at outside system Duration of current treatment regiment: 2 months HISTORY: Xrays No new xrays taken in office Trauma or injury No Work-Related No Pain description burning, sharp. Location posterior Patient notes that their pain radiates to right upper extremity Activity Modification yes Hand Dominance right TREATMENTS COMPLETED: 6 weeks of PT completed? Month and Year of last PT date? None recent regarding the cervical spine. No Physician directed home exercise completed? yes Patient has trialed the physician directed home exercise program without relief of their symptoms. Medications yes List: Tylenol and Motrin 800mg without improvements. Has trialed Gabapentin and Lyrica in the past but she does not like the side effects. Patient has taken narcotics in the past and found no improvements with this. Pt recently trialed Toradol 10mg course prescribed at last appmt with out relief of her symptoms. Alternative interventions Chiropractic: yes , without relief. Massage therapy: No R.I.C.E: yes heat/ice without relief Brace: No TENS unit which exacerbated her symptoms. Injections No RFA: No SUBJECTIVE: Ms. Dela Cruz returns to the office for a recheck of their cervical spine and planned revision C5-C7 ACDF. Patient reports no changes to her symptoms since the time of the last appointment. The patient continues to complain of burning, sharp cervical pain extending into the right upper extremity with associated numbness and tingling. Furthermore she does also report continued weakness about the right upper extremity that is significantly impacting her ability to perform many of her daily tasks. Overall the patient has seen a progressive increase in symptoms since their onset. Ms. Dela Cruz symptoms are exacerbated with any standing, ambulation, flexion/extension/twisting of the neck, and use of the right arm, due to this they notes that it is increasingly difficult for Ms. Dela Cruz to complete many of their daily tasks. Patient is having severe sleep disturbances as well due to their ongoing pain and associated symptoms. Regarding treatments, the patient has previously trialed all abovementioned treatment modalities without any relief. Patient denies trialing any other modalities at this time. Otherwise the patient denies any f/c/sob/cp, no bladder or bowel retention/incontinence, no perineal numbness/tingling, and ambulates independently. HPI: Ms. Dela Cruz last returned to the office on 01/07/2022 for an evaluation of their cervical spine. Patient reports increased cervical pain and right upper extremity radicular pain. Regarding her radiculopathy the patient notes that this has spread and is now diffuse down through the arm with increasing weakness. Overall she notes that she is having increased debility due to her ongoing cervical symptoms. Overall the patient has seen a progressive increase in symptoms since their onset. Ms. Dela Cruz symptoms are exacerbated with most any activity involving flexion/extension of the neck along with standing and ambulation, due to this they notes that it is increasingly difficult for Ms. Dela Cruz to complete many of their daily tasks. Patient is having severe sleep di sturbances as well due to their ongoing pain and associated symptoms. Regarding treatments, the patient has previously trialed all aobvvementioned treatment modalities without relief of her symptoms. Patient denies trialing any other modalities at this time. Otherwise the patient denies any f/c/sob/cp, no incision concerns, no bladder or bowel retention/incontinence, no perineal numbness/tingling, and ambulates independently. Ms. Dela Cruz was previously seen on 12/11/2021 regarding her lumbar spine. She is established with low back issues and is currently scheduled for a lumbar (L4-S1) Minimally Invasive Transforaminal Lumbar Interbody Fusion. But has not previously been seen for her ongoing cervical issues. Of note the patient does have a history of a C5-C6 ACDF done in 201 through an outside provider. The patients' past social, medical, family, surgical history, as well as review of systems, have been reviewed. Please refer to the Neurosurgery History and Phy sical form that has been scanned in to our electronic medical record system. 14 points review of systems completed and as stated in HPI, all other systems reviewed are negative. Social History: Reviewed, see appropriate section of the chart for details. P3 Social History: Smoking: former smoker P3 Alcohol: none P3 Family History: Reviewed, see appropriate section of the chart for details. P2 Past Medical History: Reviewed, see appropriate section of the chart for details. [id number] Medications: Rx: Advair Diskus 250 mcg-50 mcg/dose powder for inhalation Ref: 0 Rx: albuterol sulfate Ref: 0 Rx: atenoloL Ref: 0 Rx: CeleXA 40 mg tablet Ref: 0 Rx: Cozaar 100 mg tablet Ref: 0 Rx: hydroCHLOROthiazide 25 mg tablet Ref: 0 Rx: rOPINIRole 3 mg tablet Ref: 0 Rx: acetaminophen 325 mg capsule Ref: 0 Rx: gabapentin 600 mg tablet Ref: 0 Rx: oxyCODONE-acetaminophen 10 mg-325 mg tablet Ref: 0 PHYSICAL EXAMINATION: General: Awake, alert, appropriate for age, in no acute distress. HEENT: No unusual neck masses around region of lateral neck triangle, thyroid, supraclavicular groove Heart: Regular rate and rhythm, normal S1, S2 and no murmur/gallop. Lungs: Clear to auscultation bilaterally with no use of accessory muscles. Extremities: Skin warm and dry without acute lesions, coloration, temperature, skin intact, no tenderness or erythema Integument: Hairy patches: ABSENT Dorsal skin dimples: ABSENT Cafe au lait spots: ABSENT Palpation: Please see Pain drawing on Intake sheet for further detail. Midline spinal tenderness: No E6 Cervical Tenderness: Yes E6 Paralumbar tenderness: No E6 Parathoracic tenderness: No E6 Buttocks tenderness: No E6 Sacroiliac Tenderness: No POSTURAL and MUSCULO-SKELETAL EVALUATION: Coronal Balance: NEUTRAL Recumbent testing: Patient is able to lay flat on back Sagittal Balance: NEUTRAL Shoulder Profile: LEVEL Pelvic Girdle: LEVEL Neck ROM: RESTRICTED Lumbar ROM: UNRESTRICTED Shoulder ROM: Symmetrical Hip ROM: Symmetrical Knee ROM: Symmetrical Hands: Normal appearance, symmetrical Feet: Normal appearance, Symmetrical VASCULAR STATUS : LEFT RIGHT Wrist Pulses INTACT INTACT Pedal Pulses (Dors. pedis & post.tibialis) INTACT INTACT Color NORMAL NORMAL Edema Absent Absent NEUROLOGIC EXAMINATION: Mental Status:Awake and alert, fully oriented, with normal attention, anali ntration and memory, and fluent, appropriate speech. Cranial Nerves: I: Olfactory not tested. II: Visual acuity normal, no visual field deficit noted with confrontation. III,IV: Normal pupillary reflexes & intact extraocular movements without nystagmus. V,: Intact symmetrical facial sensation. VII: Intact symmetrical facial motor movement VIII: Hearing intact. IX,X: Intact gag, swallow, & normal voice. XI: Sternocleidomastoid, trapezius function intact. XII: Tongue midline with normal movements. L'hermitte's Sign: Negative / absent Spurling'Sign: Absent bilaterally. Cubital percussion test: Absent bilaterally. Lewis-Tinel sign - Carpal region: Absent bilaterally. Straight Leg Raising: Absent bilaterally. Crossed straight leg raise: negative O8 MOTOR EXAM (0-5/5, N/T) UPPER EXTREMITY Shoulder Abduction Biceps Triceps Wrist Extension Hand Intrins ics Cork Sorter Right 4-/5 4-/5 4-/5 4-/5 4-/5 4-/5 Left 5/5 5/5 5/5 5/5 5/5 5/5 LOWER EXTREMITY Hip Flexion Knee Extension Knee Flexion DF PF EHL FHL Right 5/5 5/5 5/5 5/5 5/5 5/5 5/5 Left 5/5 5/5 5/5 5/5 5/5 5/5 5/5 REFLEXES(0-4/2, NT)Upper Extremity Lower Extremity Right 3+ 2 Left 3+ 2 Pathological Reflexes RIGHT LEFT Lewis's Present Present Clonus Absent Absent Babinski Absent Absent # Indicates mechanical impairment Muscle appearance: Symmetrical, without signs of atrophy or dystrophy. Sensory system (0-4, N/T) Test type RU LISANDRO RL LL Joint-Position 2 2 2 2 Vibration 2 2 2 2 Pain & LT sense 2 2 2 2 Dermatomal Deficit: None None None None Gait and Functional Evaluation: Ambulatory aids: Independent Romberg's test: Intact bilaterally Toe heel walk / heel-toe walk intact while maintaining satisfactory balance? yes Squatting/straightening w/o assistance to a min of 60 degree knee flexion? yes Single leg stance: intact Trendelenburg sign negative bilaterally Hand and finger dexterity intact bilaterally? yes Disdiadochokinesis examination negative bilaterally? yes RADIOGRAPHIC STUDIES: XRay Cervical multiview (Lateral, Flexion, Extension, AP, Oblique) 5 views completed at [facility] taken on 01/07/22 of Cervical Spine: Images reviewed demonstrate post surgical changes with anterior C5-[address]. There is some adjacent segment disease C4-5 noted with disc height loss. Screws and plate are in position without evidence of fracture or loosening. Overall alignment is flattened lordosis. No instability noted at this time. MRI scan from12/29/21 completed at [facility]: Images reviewed demonstrated again post surgical changes C5-6. There is residual, moderate to severe central stenosis at C5-6 due to continued disc material as well as posterior based ligamental hypertrophy causing stenosis at this level. There are no acute fractures noted. No instability noted at this time. C0-1 and C1-2 are stable. Disc material extends down to C7 level as well. IMPRESSION: It was my pleasure to have seen and examined Jacque. I reviewed the patient's clinical syndrome, physical findings, and imaging studies during the appointment today. It is my impression that the patient has a diagnosis of. 1. C5-C6 stenosis, severe 2. right upper extremity radiculopathy 3. right upper extremity weakness I outlined the natural course history without intervention and various interventional options. PLAN: Based on my findings I suggest the following course of action: -Advised patient to continue with supplements, health maintenance, and home exercise programs. Patient expressed understanding and will continue with these modalities. -I discussed treatment options with the patient, including operative and non-operative options, and they have elected to proceed with the following surgical procedure: cervical (C5-C7) revision ACD, Staged with a posterior C5-7 decompressionand fusion as stage II The indications, risks, benefits, and alternatives to surgery were discussed with the patient at length. Specifically (but not limited to) the risks of infection, stiffness, recurrence of symptoms, need for revision surgery, local numbness, neurovascular injury, and blood clots were discussed. The patient's questions were answered. The decision to proceed was made. Consent will be obtai fidel for the procedure. Spine Surgery Risk Review Ms. Dela Cruz is presenting for evaluation of cervical pain. It was my pleasure to have seen and examined Ms. Dela Cruz. In our visit today we have had a chance to go over subjective complaints, physical examination findings and treatments including the natural course history without intervention and various interventional options. The patients imaging demonstrates: XRay Cervical multiview (Lateral, Flexion, Extension, AP, Oblique) 5 views completed at [facility] taken on 01/07/22 of Cervical Spine: Images reviewed demonstrate post surgical changes with anterior C5-[address]. There is some adjacent segment disease C4-5 noted with disc height loss. Screws and plate are in position without evidence of fracture or loosening. Overall alignment is flattened lordosis. No instability noted at this time. MRI scan from12/29/21 completed at [facility]: Images reviewed demonstrated again post surgical changes C5-6. There is residual, moderate to severe central stenosis at C5-6 due to continued disc material as well as posterior based ligamental hypertrophy causing stenosis at this level. There are no acute fractures noted. No instability noted at this time. C0-1 and C1-2 are stable. Disc material extends down to C7 level as well. On physical exam, Ms. Dela Cruz demonstrates significantly restricted cervical ROM with significnat pain with flexion/extension. Patient does also demonstrate right upper extremity weakness diffusely through all major muscle groups. Furthermore the patient is hyperreflexic bilaterally as well. Lastly the patient does have bilateral Hoffmans. I have explained to the patient that as their condition progresses it will cause further neurological deficits and eventual paralysis. Based on the patients imaging, physical exam, and the rapid progression and disabling nature of their symptoms, at this time I recommend surgery in the form of a: cervical (C5-C7) revision ACDF. I discussed the risk and benefits of this procedure at length with Ms. Dela Cruz. The patient and her family agreed to considered pursuing the procedure abovementioned. Prior to surgery, she should follow up with her PCP (Cardio, ID, IM etc) for clearance. Questions were invited and answered, and the patient wishes to proceed as outlined below. Currently, I am recommendin. Stage I: cervical (C5-C7) revision ACDF Stage II: separate date C5-T1 posterior decompression and fusion. 2.Follow up with PCP for surgical clearance 3.Review of surgical risks and benefits as well as an educational packet on the proposed surgical procedure. Risks: All surgical procedures come with inherent risks, including those related to positioning, anesthesia, intraoperative findings, and postoperative complications. It is important to understand that surgery does not come with any guarantee of a successful outcome as complications and adverse events are always possible. The patient was given a handout in office today discussing the surgical procedure and risks associated with the intervention, both of which were discussed with the patient. These risks include but are not limited to the following: * Experiencing same, different or even worse symptoms in back, neck, arms, or legs compared to before surgery. Requiring further surgery or other forms of treatment presently or at some time in the future at same or other levels of the intended spine surgery. On an extreme but fortunately relatively rare basis severe complication such as blindness, stroke, heart attack, temporary and/or permanent nerve injury, paralysis, coma, or may occur, sometimes without known explanation. Surgical complications may include but are not limited to risk of infection, fluid accumulation in the surgical dissection site, including a seroma or hematoma, that requires additional surgery, wound drainage, bleeding, new numbness or weakness, vision changes/loss, spinal fluid leakage, non-healing and/or infected incision, headaches, difficulty or inability to swallow, hoarseness, hemopneumothorax, pneumothorax, impotence, retrograde ejaculation, vaginal dryness; injury to nerves, spinal cord, blood vessels, lymphatics or other vital organs (i.e., bowel injury, injury to the great vessels); heterotopic bone formation; complications related to the hardware such as screws, rods, cages including misplaced hardware, device failure, instrumentation at the wrong spine level, hardware fracture/breakage, or hardware loosening; vertebral failure of the spinal column above or below the newly placed hardware; retained surgical instrumentations or devices and the need for further surgery. * Medical risks of the planned spine surgery include but are not limited to generalized Infections to the whole body or local areas outside of the surgical site (sepsis), heart attack, bleeding, anaphylaxis, meningitis, seizure, epilepsy, hearing loss, burn clemons, laceration of the head or other areas of the body, bruising, hypersensitivity of the skin, bladder over distension; allergic reaction; shoulder injury related to positioning; fat, blood and air clots to other areas of the body like heart, lungs, brain; failure of internal organs such as lungs, kidneys, liver and excessive bleeding. If blood transfusions are necessary, note that transfusions may cause intolerance reactions such as anaphylaxis or other complex reactions. Despite best efforts, the results of spine surgery might not heal in terms of bone, soft tissues such as skin, fascia, ligaments, and joints. Additionally, in order to achieve best possible results, spine surgery may be carried out beyond the initially planned levels and involve decompression, fusion including insertion of hardware at levels other than the original intended area of surgical interest change some portions of the procedure in order to ensure the best possible outcomes. With spine surgery and spinal fusion, there are different off label uses of instrumentation (devices, implants and hardware) as well as biological substances (bone morphogenic proteins, demineralized bone matrix) as well as using extra bone from allograft sources (i.e. cadaver bone) or autograft (iliac crest bone, ribs, or the spine itself). The patient has been given information about these practices and their inherent risks and benefits. [facility] is an educational center that serves as a training facility for neurosurgical and orthopedic MONOGRAM OPERATOR and Nursing students. Physician assistants are medically trained surgical providers who function in the outpatient, inpatient, and operating room setting under the direct supervision of the attending surgeon. [facility] has multiple operating rooms with single and overlapping rooms running daily. They currently function under the required guidelines as produced by the [facility] Finance Committee with regards to the overlapping rooms and will continue to comply with changes to this policy as they occur. The requirements include and are complied with as follows: (1) the critical portions of the overlapping rooms will not occur at the same time, (2) the attending physician will be physically present during the critical portions of the procedure and immediately available during the entire case, and (3) a back-up attending is designated should the primary attending not be immediately a vailable. The patient has had a chance to review all the listed information, has been given print outs detailing this information, and has had all his/her questions answered to their satisfaction. It was my pleasure to have seen and examined Ms. Dela Cruz. In our visit today we have had a chance to go over my understanding of our patient's current condition, the natural course history without intervention and various interventional options. Questions were invited and answered, and the patient wis hes to proceed as outlined above. I have seen and examined the patient for 25 minutes and we have spent more than 50% of the time in repeat and detailed counseling about the patient's condition, its natural course history with out and as much as can be predicted with surgery and re-review of various surgical treatment options. In conclusion, Ms. Dela Cruz and her family requested we proceed with the above suggested surgery and are willing to accept risks and limitations of the suggested surgery as nature of the disease process and our best attempts at abdifatah atment for the condition. Thank you again for allowing us to be part of your patient's care. Please don't hesitate to contact me if you have any further questions. Signed and authenticated by: [employer] P:\\\\ppart\\\\[id number]\\\\[id number] \\d Follow-up: 2 weeks post-op Patient Education: (Informational booklet, instructions, etc) given at today's appointment: Yes .ED:Patient Education: Y Plan at next visit: pre-operative review Medications Reviewed: YES In our visit today Ms. Dela Cruz and I have had a chance to go over my understanding of the patient's current condition, the natural course history without intervention and various interventional options. Questions were invited and answered, and the patient wishes to proceed as outlined above. I will be sure to keep you updated afterMs. Dela Cruz returns here for further follow-up. Thank you again for your referral. Please do not hesitate to contact me if you have any further questions. Signed and authenticated by: Dexter Victor [facility] [address] [place] [id number] This message is confidential, intended only for the named recipient(s) and may contain information that is privileged or exempt from disclosure under applicable law. If you are not the intended recipient(s), you are notified that the dissemination, distribution or copying of this information is strictly prohibited. If you received this message in error, please notify the sender then delete this message. Patient verbalizes understanding of the information discussed. The above note was initiated by Dexter Berg, physician recording social science research assistant for Dr. Dexter Rosales. This note has been reviewed by Dr. Rosales, who has made his personal changes and impressions for this document. CC: Aiden Santana M.D. # SIGNED BY Dexter Rosales ([facility])02/24/2022 01:56PM Past Medical History Past Medical History: Asthma, COPD, GERD/Reflux, Hypertension, Musculoskeletal Disorder, Osteoarthritis (OA) Additional Past Medical History / Comment(s): chronic back pain, right hand numb ness & pain down right arm History of Any Multi-Drug Resistant Organisms: None Reported Past Surgical History: Back Surgery, Orthopedic Surgery Additional Past Surgical History / Comment(s): partial discectomy in lumbar region, cyst in knee removed, cervical fusion 2018 Past Anesthesia/Blood Transfusion Reactions: No Reported Reaction Smoking Status: Former smoker - Past Family History Mother Family Medical History: No Reported History Medications and Allergies Home Medications Medication Instructions Recorded Confirmed Type Albuterol Inhaler [Ventolin Hfa 1 - 2 puff INHALATION Q6H PRN 11/01/16 03/31/22 History Inhaler] Citalopram Hydrobromide [CeleXA] 40 mg PO DAILY 11/01/16 03/31/22 History Ibuprofen [Motrin] 800 mg PO Q8H PRN 11/01/16 03/31/22 History atenoloL 100 mg PO BID 08/18/17 03/31/22 History rOPINIRole HCL [Requip] 1 mg PO TID 08/18/17 03/31/22 History Fluticasone Propion/Salmeterol 1 inhalation PO BID 09/09/21 03/31/22 History [Advair 250-50 Diskus] Losartan Potassium [Cozaar] 100 mg PO DAILY 09/09/21 03/31/22 History hydroCHLOROthiazide [Hydrodiuril] 25 mg PO DAILY 09/09/21 03/31/22 History Gabapentin 600 mg PO BID 03/31/22 03/31/22 History Linaclotide [Linzess] 145 mcg PO DAILY 03/31/22 03/31/22 History Omeprazole [PriLOSEC] 40 mg PO DAILY 03/31/22 03/31/22 History oxyCODONE HCL/ACETAMINOPHEN 1 tab PO Q4HR PRN 03/31/22 04/01/22 History [Percocet 10-325 mg] Allergies Allergy/AdvReac Type Severity Reaction Status Date / Time No Known Allergies Allergy Verified 12/09/21 09:13 Physical Examination Osteopathic Statement: *. No significant issues noted on an osteopathic structural exam other than those noted in the History and Physical/Consult. Results - Labs Result Diagrams: 04/02/22 05:59 04/02/22 05:59
[2022-04-02] MEDS ORDERED: IV FLUID CONTINUATION 1,000 ML IV ONE (13:26)
[2022-04-02] MEDS ORDERED: ONDANSETRON 4 MG/2 ML VIAL IVP ONE (13:48)
[2022-04-02] MEDS ORDERED: MIDAZOLAM 2 MG/2 ML VIAL IVP ONE (13:48)
[2022-04-02] MEDS ORDERED: fentaNYL (PF) 50 MCG/ML 2 ML AMP ONE (14:15)
[2022-04-02] MEDS ORDERED: ePHEDrine 50 MG/ML 1 ML VIAL ONE (14:15)
[2022-04-02] MEDS ORDERED: TRANEXAMIC ACID IN NACL,ISO-OS 1,000 MG/100 ML BAG ONE (14:15)
[2022-04-02] MEDS ORDERED: SUCCINYLCHOLINE CHLORIDE 200 MG/10 ML VIAL IV ONE (14:15)
[2022-04-02] MEDS ORDERED: HYDROmorphone (PF) 1 MG/ML ONE (14:15)
[2022-04-02] MEDS ORDERED: PROPOFOL 10 MG/ML 20 ML VIAL IV ONE (14:15)
[2022-04-02] MEDS ORDERED: LIDOCAINE 2% INJ 20 MG/ML (2 ML VIAL) ONE (14:15)
[2022-04-02] MEDS ORDERED: KETAMINE 10 MG/ML 20 ML VIAL ONE (14:15)
[2022-04-02] MEDS ORDERED: THROMBIN (BOVINE) 5,000 UNIT VIAL TOPICAL ONE (14:17)
[2022-04-02] MEDS ORDERED: GELATIN SPONGE,ABSORB (LARGE) 1 EACH SPONGE TOPICAL ONE (14:17)
[2022-04-02] MEDS ORDERED: BUPIVACAIN-EPI 0.25%-1:200,000 30 ML VIAL SQ ONE (14:17)
[2022-04-02] MEDS ORDERED: LACTATED RINGERS 1,000 ML IV ONE (14:59)
[2022-04-02] MEDS ORDERED: VANCOMYCIN 1,000 MG VIAL MISCELLANE ONE (16:00)
[2022-04-02] MEDS: HYDROmorphone 0.5 MG/0.5 ML SYRINGE IVP PRN ×2 (16:48→16:53)
[2022-04-02] MEDS ORDERED: LORazepam 2 MG/ML INJ IV ONE (16:57)
[2022-04-02] MEDS ORDERED: SODIUM CHLORIDE 0.9% 1,000 ML IV ONE (17:58)
[2022-04-02] MEDS: SENNOSIDES-DOCUSATE SODIUM 1 EACH TAB PO PRN (20:52)
[2022-04-02] MEDS: HYDROmorphone 1 MG/ML 1 ML SYRINGE IVP PRN (20:52)
--- NOTE | 2022-04-02 21:27 | CONS ---
CONSULTATION HISTORY OF PRESENT ILLNESS: A white female. She is in day 2 surgery for cervical radiculopathy. Home medicines have been reordered. Had medical consult. She is having no chest pain or shortness of breath. She is status post surgery. She is in the second surgery currently. PHYSICAL EXAMINATION: VITAL SIGNS: Stable. CARDIOVASCULAR: S1 and S2. LUNGS: Clear. GI: Soft. HEMATOLOGIC: Negative Homans ASSESSMENT: She had cervical revision, C5 to C7. Stage 2, C5 to T1 currently being done. Home medicines are being reordered. Vital signs reviewed; 96% on room air, blood pressures 150s to 180s over 70s, temperature 98.1, respirations 16 to 18, pulse 70s to 80s. PLAN: Continue current treatment. Status post cervical surgery. Home medicines have been reordered. Please see further orders. Thank you for the consult. CRISTO / CLARA: [id number] /
[2022-04-03] MEDS: HYDROmorphone 0.5 MG/0.5 ML SYRINGE IVP PRN (02:54)
[2022-04-03] MEDS: CYCLOBENZAPRINE 10 MG TAB PO PRN (05:23)
[2022-04-03] MEDS: HYDROmorphone 1 MG/ML 1 ML SYRINGE IVP PRN ×4 (05:59→17:00)
[2022-04-03] MEDS: ACETAMINOPHEN TAB 500 MG TAB PO SCH ×3 (07:36→17:00)
[2022-04-03] MEDS ORDERED: LORazepam 2 MG/ML INJ IV PRN (08:16)
[2022-04-03] MEDS: LACTATED RINGERS 1,000 ML IV SCH (08:23)
[2022-04-03] MEDS: hydroCHLOROthiazide 25 MG TAB PO SCH (08:30)
[2022-04-03] MEDS: CITALOPRAM HYDROBROMIDE 20 MG TAB PO SCH (08:30)
[2022-04-03] MEDS: diazePAM 5 MG TAB PO SCH ×3 (08:31→22:18)
[2022-04-03] MEDS: GABAPENTIN 300 MG CAP PO SCH ×2 (08:31→22:18)
[2022-04-03] MEDS: atenoloL 50 MG TAB PO SCH ×2 (08:31→22:17)
[2022-04-03] MEDS: LOSARTAN 50 MG TAB PO SCH (08:31)
[2022-04-03] MEDS: NON FORMULARY DRUG (Linaclotide [Linzess] 145 MCG Capsule) PO SCH (08:32)
[2022-04-03 09:11] LABS: Basophils # (A) 0.06 X 10*3/uL (0.00-0.10); Basophils % (A) 0.3 %; Eosinophils # (A) 0.04 X 10*3/uL (0.04-0.35); Eosinophils % (A) 0.2 %; HCT 35.8 % (37.2-46.3); HGB 12.1 g/dL (12.0-15.0); Immature Grans, Automated 0.7 %; Lymphocytes # (A) 2.32 X 10*3/uL (0.90-5.00); Lymphocytes % (A) 12.3 %; MCH 32.2 pg (27.0-32.0); MCHC 33.8 g/dL (32.0-37.0); MCV 95.2 fL (80.0-97.0); Mean Platelet Volume 8.4 fL (9.5-12.2); Monocytes # (A) 1.48 X 10*3/uL (0.20-1.00); Monocytes % (A) 7.8 %; NRBC Per 100 WBC 0 /100 WBCS (0.0-0.0); Neutrophils # (A) 14.84 X 10*3/uL (1.80-7.70); Neutrophils % (A) 78.7 %; Platelet Count 442 X 10*3/uL (140-440); RBC 3.76 X 10*6/uL (4.10-5.20); RDW 12.6 % (11.5-14.5); WBC 18.87 X 10*3/uL (4.50-10.00)
[2022-04-03 09:20] LABS: African American GFR (CKD) 123.6 (60.0-200.0); Anion Gap 12.1 mmol/L (10.00-18.00); BUN/Creat Ratio 16.2 Ratio (12.00-20.00); Blood Urea Nitrogen 8.1 mg/dL (9.0-27.0); Calcium 9.4 mg/dL (8.7-10.3); Carbon Dioxide 24.9 mmol/L (20.0-27.5); Non-African American GFR(CKD) 106.7 (60.0-200.0)
--- NOTE | 2022-04-03 11:21 | P.PN ---
Subjective Progress Note Date: 04/03/22 Principal diagnosis: 1. 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 C6-7 spondylosis with stenosis 3. UE radiculopathy and weakness 4. Mechanical neck pain Patient was seen at bedside this morning with hard cervical collar in place. Patient says she is in significant pain currently. Patient is wondering when she'll be able to get other pain medication. Patient is complaining pain mostly in the posterior cervical spine currently patient says she is does have some sharp/stabbing pains in both shoulder blades at this time. Patient also says some numbness and tingling is present down both arms at this time. Patient says she has not had bowel movement since surgery. Patient says she has been passing gas. Patient says she has urinated since surgery yesterday. Patient denies chest pain, fever, shortness of breath, nausea, vomiting, change in vision, loss of bowel/bladder control. Objective - Vital Signs Vital signs: Vital Signs Temp 98.1 F 04/03/22 07:45 Pulse 71 04/03/22 07:45 Resp 16 04/03/22 07:45 BP 174/95 04/03/22 07:45 Pulse Ox 91 L 04/03/22 07:45 FiO2 Intake & Output 04/02/22 04/03/22 04/03/22 18:59 06:59 18:59 Intake Total 1450 Output Total 2400 1450 Balance -950 -1450 Intake: IV 1450 Output: Drainage 0 Posterior Neck 0 Urine 2300 1450 Estimated Blood Loss 100 Other: Voiding Method Indwelling Catheter Indwelling Catheter # Voids 1 - Exam Hard cervical collar is in place currently. Hard cervical collar was removed and posterior cervical drain was saturated with serosanguineous drainage. It appears that the posterior cervical drain was pulled by accident some point between surgery yesterday and before encounter this morning. Posterior cervical dressing was changed at bedside. Minimal drainage at this time. [place] appear well aligned. New Opteform dressing was placed over posterior cervical incision drain incision. Anterior cervical dressing was changed. Negative for any drainage. Incision appears be healing well at this time. Patient does have a moderate amount of tenderness to palpation over the anterior cervical and posterior cervical incisions. Nontender to palpation throughout rest of exam. Sensation is equal, symmetric, by intact throughout the upper and lower extremities on exam. Patient does have some limited range of motion bilateral upper extremities due to pain. Patient does have full range of motion bilateral lower extremities. 4-/5 in all major motor groups in right upper extremity exam. 4+/5 in all major motor groups in left upper extremity and exam. 5/5 in all major motor of some bilateral lower extremities on exam. We will ask us as is intact. Radial pulses intact, 2+ bilaterally. Cap refill under 3 seconds in digits of extremities. Negative Homans bilaterally. Negative clonus bilaterally. - Labs CBC & Chem 7: 04/03/22 06:30 04/03/22 06:30 Labs: Abnormal Lab Results - Last 24 Hours (Table) 04/03/22 04/03/22 Range/Units 06:30 06:30 WBC 18.87 H (4.50-10.00) X 10*3/uL RBC 3.76 L (4.10-5.20) X 10*6/uL Hct 35.8 L (37.2-46.3) % MCH 32.2 H (27.0-32.0) pg Plt Count 442 H (140-440) X 10*3/uL MPV 8.4 L (9.5-12.2) fL Immature Gran # 0.13 H (0.00-0.04) X 10*3/uL Neutrophils # 14.84 H (1.80-7.70) X 10*3/uL Monocytes # 1.48 H (0.20-1.00) X 10*3/uL Sodium 130 L (135-145) mmol/L Chloride 93 L (96-109) mmol/L BUN 8.1 L (9.0-27.0) mg/dL Creatinine 0.5 L (0.6-1.5) mg/dL Assessment and Plan Assessment: 1. 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 C6-7 spondylosis with stenosis 3. UE radiculopathy and weakness 4. Mechanical neck pain Postoperative day #2 status post C6 to C7 ACDF; removal hardware anterior cervic al spine C5 to C6 and postoperative day 1 status post C4-C7 posterior cervical decompression and fusion Plan: 1. Pseudoarthrosis C5-6; C6-7 spondylosis with stenosis; UE radiculopathy and weakness; Mechanical neck pain - surgery for , 04/01/2022 - C6 to C7 ACDF; removal hardware anterior cervical spine C5 to C6 and states to surgery performed 04/02/2022 - C4-C7 posterior cervical decompression and fusion. Patient stable at bedside this morning. Patient is a moderate amount of pain during encounter. Posterior cervical drain was removed at some point from surgery to this morning. Dressing was saturated and changed at bedside. Anterior cervical drain was removed and dressing was changed. Incisions appear to be healing well at this time. We'll continue to follow patient during her stay in hospital. 2. Appreciate medical management 3. Pain management - oxycodone; Flexeril; gabapentin; Valium; Tylenol 4. DVT prophylaxis - mechanical 5. GI prophylaxis - senna 6. PT/OT - weightbearing as tolerated with a walker. C-collar on at all times 7. Encourage incentive spirometer use 8. Discharge planning - plan for discharge home with health services within the next few days Time with Patient: Less than 30
[2022-04-03] MEDS ORDERED: LORazepam 1 MG TAB PO PRN ×2 (16:24)
[2022-04-03] MEDS ORDERED: LORazepam 0.5 MG TAB PO PRN (16:24)
[2022-04-04] MEDS: ACETAMINOPHEN TAB 500 MG TAB PO SCH ×4 (00:29→17:36)
[2022-04-04] MEDS: HYDROmorphone 1 MG/ML 1 ML SYRINGE IVP PRN ×4 (00:30→17:40)
[2022-04-04] MEDS: PANTOPRAZOLE 40 MG TABLET PO SCH (06:13)
[2022-04-04] MEDS: diazePAM 5 MG TAB PO SCH ×3 (08:58→20:36)
[2022-04-04] MEDS: atenoloL 50 MG TAB PO SCH ×2 (08:58→20:37)
[2022-04-04] MEDS: GABAPENTIN 300 MG CAP PO SCH ×2 (08:58→20:36)
[2022-04-04] MEDS: hydroCHLOROthiazide 25 MG TAB PO SCH (08:58)
[2022-04-04] MEDS: LOSARTAN 50 MG TAB PO SCH (08:58)
[2022-04-04] MEDS: CITALOPRAM HYDROBROMIDE 20 MG TAB PO SCH (08:58)
[2022-04-04] MEDS: NON FORMULARY DRUG (Linaclotide [Linzess] 145 MCG Capsule) PO SCH (09:12)
[2022-04-04] MEDS: LACTATED RINGERS 1,000 ML IV SCH (09:20)
--- NOTE | 2022-04-04 09:32 | P.PN ---
Subjective Progress Note Date: 04/04/22 Principal diagnosis: 1. 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 C6-7 spondylosis with stenosis 3. UE radiculopathy and weakness 4. Mechanical neck pain Patient was seen at bedside this morning with hard cervical collar in place. Patient says she is in significant pain currently. Patient is complaining pain mostly in the posterior cervical spine currently patient says she is does have some sharp/stabbing pains in both shoulder blades at this time. Patient also says some numbness and tingling is present down both arms at this time. Patient says she has not had bowel movement since surgery. Patient says she has been passing gas. Patient says she has urinated since surgery yesterday. Patient denies chest pain, fever, shortness of breath, nausea, vomiting, change in vision, loss of bowel/bladder control. Objective - Vital Signs Vital signs: Vital Signs Temp 97.8 F 04/04/22 07:47 Pulse 74 04/04/22 07:47 Resp 16 04/04/22 07:47 BP 152/83 04/04/22 07:47 Pulse Ox 97 04/04/22 07:47 FiO2 Intake & Output 04/03/22 04/04/22 04/04/22 18:59 06:59 18:59 Other: # Voids 1 - Exam Hard cervical collar is in place currently. Hard cervical collar was removed and posterior cervical dressing presented with some serosanguineous drainage. Po sterior cervical dressing was changed at bedside. [place] appear well aligned. New Opteform dressing was placed over posterior cervical incision drain incision. Anterior cervical dressing in place with minmal drainage. Incision appears be healing well at this time. Patient does have a moderate amount of tenderness to palpation over the anterior cervical and posterior cervical incisions. Nontender to palpation throughout rest of exam. Sensation is equal, symmetric, by intact throughout the upper and lower extremities on exam. Patient does have some limited range of motion bilateral upper extremities due to pain. Patient does have full range of motion bilateral lower extremities. 4-/5 in all major motor groups in right upper extremity exam. 4+/5 in all major motor groups in left upper extremity and exam. 5/5 in all major motor of some bilateral lower extremities on exam. We will ask us as is intact. Radial pulses intact, 2+ bilaterally. Cap refill under 3 seconds in digits of extremities. Negative Homans bilaterally. Negative clonus bilaterally. - Labs CBC & Chem 7: 04/03/22 06:30 04/03/22 06:30 Assessment and Plan Assessment: 1. 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 C6-7 spondylosis with stenosis 3. UE radiculopathy and weakness 4. Mechanical neck pain Postoperative day #3 status post C6 to C7 ACDF; removal hardware anterior cervical spine C5 to C6 and postoperative day 2 status post C4-C7 posterior cervical decompression and fusion Plan: 1. Pseudoarthrosis C5-6; C6-7 spondylosis with stenosis; UE radiculopathy and weakness; Mechanical neck pain - surgery performed , 04/01/2022 - C6 to C7 ACDF; removal hardware anterior cervical spine C5 to C6. 2nd stage surgery performed 04/02/2022 - C4-C7 posterior cervical decompression and fusion. Patient stable at bedside this morning. Patient is a moderate amount of pain during encounter. Posterior cervical dressing changed at bedside. Incisions appear to be healing well at this time. We'll continue to follow patient during her stay in hospital. 2. Appreciate medical management 3. Pain management - oxycodone; Flexeril; gabapentin; Valium; Tylenol 4. DVT prophylaxis - mechanical 5. GI prophylaxis - senna 6. PT/OT - weightbearing as tolerated with a walker. C-collar on at all times 7. Encourage incentive spirometer use 8. Discharge planning - plan for discharge home with health services within the next few days Time with Patient: Less than 30
[2022-04-04] MEDS ORDERED: ONDANSETRON 4 MG/2 ML VIAL IVP PRN (15:45)
[2022-04-04] MEDS: SENNOSIDES-DOCUSATE SODIUM 1 EACH TAB PO PRN (20:43)
[2022-04-05] MEDS: ACETAMINOPHEN TAB 500 MG TAB PO SCH ×3 (01:06→11:00)
[2022-04-05] MEDS: PANTOPRAZOLE 40 MG TABLET PO SCH (06:36)
[2022-04-05] MEDS: HYDROmorphone 0.5 MG/0.5 ML SYRINGE IVP PRN (06:37)
[2022-04-05] MEDS: LACTATED RINGERS 1,000 ML IV SCH (06:44)
--- NOTE | 2022-04-05 08:13 | P.DS ---
Providers Date of admission: 04/01/22 08:56 Expected date of discharge: 04/05/22 Attending physician: Dexter Rosales DO Consults: 04/01/22 18:33 Consult Physician Routine Consulting Provider: Aiden Santana Reason/Comments: medical management Do you want consulting provider notified?: Yes Primary care physician: [facility] Hospital Course: Hospital Course: The patient was evaluated preoperatively and found to have the diagnosis of cervical stenosis and adjacent segment disease. They underwent appropriate preoperative care and were willing to undergo the intended procedure. They underwent a successful stage I revision C5-C7 ACDF, stage II C5-C7 PCDF, were recovered appropriately and sent to the floor. While on the floor they worked with physical therapy, occupational therapy and nursing to enhance their recovery experience. Their pain was well controlled through their stay and they were started on appropriate medications, DVT ppx modalities, activity and dietary needs. Daily labs were monitored closely, and transfusions were only used when necessary. Medicine as well as other consulting services have made t heir input and have helped with our team approach and multidisciplinary care. PT milestones have been met and passed and they have made the recommendation of home with home care for this patient and treating providers agree with this care path. The patient will be discharged home with appropriate medications, instructions and follow-up information and in stable condition. Patient Condition at Discharge: Good Plan - Discharge Summary Discharge Rx Participant: Yes New Discharge Prescriptions: New cefaDROXiL [Duricef] 500 mg PO Q12HR 5 Days #10 cap Cyclobenzaprine [Flexeril] 10 mg PO TID PRN #90 tab PRN Reason: Muscle Spasm Gabapentin 600 mg PO TID #90 tab oxyCODONE HCL [OxyIR] 5 mg PO Q4-6H PRN #56 tab PRN Reason: Pain Sennosides/Docusate Sodium [Senna Plus 8.6-50 mg Tablet] 1 each PO DAILY PRN #20 tablet PRN Reason: Constipation No Action Citalopram Hydrobromide [CeleXA] 40 mg PO DAILY Albuterol Inhaler [Ventolin Hfa Inhaler] 1 - 2 puff INHALATION Q6H PRN PRN Reason: Shortness Of Breath Ibuprofen [Motrin] 800 mg PO Q8H PRN PRN Reason: Pain rOPINIRole HCL [Requip] 1 mg PO TID atenoloL 100 mg PO BID hydroCHLOROthiazide [Hydrodiuril] 25 mg PO DAILY Fluticasone Propion/Salmeterol [Advair 250-50 Diskus] 1 inhalation PO BID Losartan Potassium [Cozaar] 100 mg PO DAILY Omeprazole [PriLOSEC] 40 mg PO DAILY Gabapentin 600 mg PO BID Linaclotide [Linzess] 145 mcg PO DAILY oxyCODONE HCL/ACETAMINOPHEN [Percocet 10-325 mg] 1 tab PO Q4HR PRN PRN Reason: Pain Discharge Medication List Albuterol Inhaler [Ventolin Hfa Inhaler] 1 - 2 puff INHALATION Q6H PRN 11/01/16 [History] Citalopram Hydrobromide [CeleXA] 40 mg PO DAILY 11/01/16 [History] Ibuprofen [Motrin] 800 mg PO Q8H PRN 11/01/16 [History] atenoloL 100 mg PO BID 08/18/17 [History] rOPINIRole HCL [Requip] 1 mg PO TID 08/18/17 [History] Fluticasone Propion/Salmeterol [Advair 250-50 Diskus] 1 inhalation PO BID 09/09/21 [History] Losartan Potassium [Cozaar] 100 mg PO DAILY 09/09/21 [History] hydroCHLOROthiazide [Hydrodiuril] 25 mg PO DAILY 09/09/21 [History] Gabapentin 600 mg PO BID 03/31/22 [History] Linaclotide [Linzess] 145 mcg PO DAILY 03/31/22 [History] Omeprazole [PriLOSEC] 40 mg PO DAILY 03/31/22 [History] oxyCODONE HCL/ACETAMINOPHEN [Percocet 10-325 mg] 1 tab PO Q4HR PRN 03/31/22 [History] Cyclobenzaprine [Flexeril] 10 mg PO TID PRN #90 tab 04/05/22 [Rx] Gabapentin 600 mg PO TID #90 tab 04/05/22 [Rx] Sennosides/Docusate Sodium [Senna Plus 8.6-50 mg Tablet] 1 each PO DAILY PRN #20 tablet 04/05/22 [Rx] cefaDROXiL [Duricef] 500 mg PO Q12HR 5 Days #10 cap 04/05/22 [Rx] oxyCODONE HCL [OxyIR] 5 mg PO Q4-6H PRN #56 tab 04/05/22 [Rx] Follow up Appointment(s)/Referral(s): Aiden Santana MD [Primary Care Provider] - 1 Week Dexter Rosales DO [Doctor of Osteopathic Medicine] - 2 Weeks Activity/Diet/Wound Care/Special Instructions: HOME MEDS LOCKED IN PHARMACY Spine Discharge and Recovery Instructions Date of Surgery: 04/01/2022, 04/02/2022 Diagnosis: Cervical stenosis, adjacent segment disease Procedure: Stage I revision C5-C7 ACDF, stage II C5-C7 PCDF Medications: See medication list All medication refills should be obtained through your primary care doctor or your clinic spine surgeon. Please discuss prescription refills at your follow up appointment. Do not call the hospital for medication refills. Dressing: Leave your dressing in place for a total of 5 days post operatively. Then you may remove your dressing and leave open to air. Keep the area clean and if not able to keep area clean, then cover with sterile gauze and tape. Showering: You may shower 3 days after your procedure allowing soap and water to run over incision. Do not scrub. Do not soak. Blot dry. Follow up: Please confirm a follow up appointment with your surgeon 3 weeks post operatively. Please make an appointment to follow up with your PCP in 1-2 weeks after surgery for evaluation 3 phase, 3-week plan POST OP WEEKS 1-3 1. Lifting/carrying/pushing/pulling limited to less than 5 pounds. 2. Do not sit for longer than 15 minutes at one time. Get up and walk around. Prolonged sitting is NOT advised. If you lay down, see if you can tolerate laying down on you front (belly side) 3. Walk for periods of 15 minutes = 1 mile but no longer; do it multiple times times each day. 4. Ice your low back after activity. POST OP WEEKS 3-6 1. Lifting limited to less than 20 pounds. 2. Do not sit for longer than 30 minutes at a time. Frequently change positions. Use a sit-to stand workstation or take frequent breaks from sitting if you have returned to work. 3. Walk for 30 minutes each day. If possible, do these three or more times a day POST OP WEEKS 6+ At your 6-week appointment we will give you a physical therapy referral to focus on a core stabilization and strengthening program. You should also work on leg & buttock strengthening, hamstring & quadriceps stretching, and continue a low impact aerobic activity program such as swimming, walking, or riding a stationary bicycle. During the initial 6 weeks after your surgery, you are at the highest risk of re-injuring your spine. You should generally avoid BLTs (bending, lifting and twisting combination motions) and follow the above guidelines to reduce the chance of reinjury. You can anticipate post op appointments in our office at approximately 3 weeks and 6 weeks after your surgery. INCISION CARE: If your incision is not draining you do NOT need to cover it with a dressing. Keep your incision clean, dry and intact. In most cases, we apply skin glue, ryan or sutures to the incision at the time of surgery. This will be like a crust or have the appearance of a scab and will fall off in time on its own. The stitches or ryan need to be removed at 3 weeks post op appointment. You may begin to shower 3 days after surgery (this allows the glue to ortez well). However, please avoid scrubbing the incision site or peeling off any of the skin glue. This will ensure optimal healing of your incision. Also, during this time avoid soaking the incision area in water - this includes swimming pools, hot tubs or baths. No ointments, lotions or oils on the incision until your surgeon allows. Leave ryan, sutures or glue in place. Neurological dysfunction that comes on suddenly can also be a sign of a stroke. Below some common symptoms of a stroke are listed: B - balance difficulty such as sudden onset walking or leaning to one side - NEW E - eye problem such as sudden double vision or trouble seeing on one side - NEW F - Facial weakness or numbness on one side - NEW A - Arm or leg weakness or numbness on one side - NEW S - Slurred speech or difficulty with word finding - NEW T - Time is BRAIN! Call 911 as soon as you recognize these symptoms Diet: Consume a regular diet rich in vegetables and lean protein such as chicken or fish. You should consume in a ratio of approximately 20% fats|40% carbohydrates|40%protein. Vegetables, sweet potatoes, brown rice or quinoa are examples of good carbohydrates. Chips, white bread, cookies and sweets/sugar are examples of bad carbohydrates. Limit your bad carbs, go wild with good carbs. "Life's Simple 7" Guidelines as per [place] [employer] These will help you reclaim your life after surgery and drill press operator helper in your recovery, keeping in mind your restrictions. (1) Get Active. Physical activity can help people lose weight, control high blood pressure and cholesterol, feel emotionally better, and sleep better. (2) Control Cholesterol. Avoid a diet high in saturated fat, trans fat, & cho lesterol. Limit whole milk & cream, ice cream, butter, egg yolks, processed meats (like sausage and hot dogs), and fatty meats. Choose healthy foods that are low in saturated fat, trans fat and cholesterol which include: Fruits and vegetables, fiber rich grain products (like whole grain pasta and brown rice), lean meat such as chicken, fish, nuts, seeds, and legumes. (3) Eat Better. Eat small portions. Shop at the grocery with a list and do not stray from it. Tips for a healthy diet include: Limit sodium intake to less than 1500mg daily, avoid prepackaged, processed, and fast foods, choose a diet rich in fruits, vegetables, and whole grain, high fiber foods, and limit saturated & cholesterol in your diet. (4) Manage Blood Pressure. If you have high blood pressure, you should have a cuff at home so that you can check your blood pressure regularly. Be sure you have a good cuff. An arm one is generally better than a wrist one. Bring the cuff to a doctor's appointment to validate that the measurements that your cuff are taking are accurate. Take your blood pressure twice daily when you are sitting down and relaxing. Record the numbers in a log and bring this log with you to your doctors' appointments. (5) Lose Weight if your BMI is above 25. A healthy BMI is between 19-25. To calculate Your BMI, you may use a Standard BMI Calculator on the NIH BMI webs ite: <www.nhlbi.nih.gov/guidelines/obesity/BMI/bmicalc.htm>. Weigh oneself daily. If you are overweight, set a goal to lose weight. A pound a week loss if needed is a good target. (6) Reduce Blood Sugar. Limit foods and liquids with "added sugars." (Added sugars include sucrose, fructose, glucose, maltose, dextrose, high fructose corn syrup, corn syrup, concentrated fruit juice and honey). (7) Stop Smoking. If you smoke, quitting smoking is one of the best things that you can do for your health. Smoking increases your risk of heart attack, stroke, and peripheral vascular disease, which is a build-up of plaque in your arteries. Please discard all the cigarettes and lighters in your house. Have a plan for what you will do when you have the urge to smoke. Direct and second-hand smoke shortens your life as well as the lives of your family, friends and others around you. For your health and the health of those around you, please consider quitting! Proper Bending Body Mechanics: Maintain a wide stance with one foot slightly in front of the other. Keep your back straight. Bend utilizing the strength in your hips and knees. Do not bend at the waist. Maintain the lifted object at your waist-level close to your body. Avoid lifting weight that causes immediately pain or pain anywhere in the body afterwards. Smoking/Nicotine If there was ever one thing that you could do to increase your overall health, decrease your risk of cardiovascular problems by about 39% the second you make the choice, it is to STOP SMOKING. Your body's most instant gratification is the second you stop smoking. We have all heard the studies, read the articles but it is true, smoking is extremely bad for your overall health, and moreover it is detrimental to your bone health. Nicotine, IN ANY FORM, kills bone cells, prevents your body from healing fractures, and significantly prolongs healing after surgery. In spine surgery specifically, it increases your risk of not healing your bones to create a fusion and increases your risk of having a revision surgery due to this up to 60%. I know it is hard. I know it feels impossible. But there are ways. Take control of your life. We are here to help you through it. And when you are ready, ask us and we can direct you to help if you desire. Use the START Plan to Quit Smoking (please visit the Helpguide.org website listed below for more information): S = Set a quit date. Choose a date within the next 2 weeks, so you have enough time to prepare without losing your motivation to quit. If you mainly smoke at work, quit on the weekend, so you have a few days to adjust to the change. T = Tell family, friends, and co-workers that you plan to quit. Let your friends and family in on your plan to quit smoking and tell them you need their support and encouragement to stop. Look for a quit srikanth who wants to stop smoking as well. You can help each other get through the rough times. A = Anticipate and plan for the challenges you'll face while quitting. Most people who begin smoking again do so within the first 3 months. You can help yourself make it through by preparing ahead for common challenges, such as nicotine withdrawal and cigarette cravings. R = Remove cigarettes and other tobacco products from your home, car, and work. Throw away all your cigarettes (no emergency pack!), lighters, ashtrays, and matches. Wash your clothes and freshen up anything that smells like smoke. Shampoo your car, clean your drapes and carpet, and steam your furniture. T = Talk to your doctor about getting help to quit. Your doctor can prescribe medication to help with withdrawal and suggest other alternatives. If you can't see a doctor, you can get many products over the counter at your local pharmacy or grocery store, including the nicotine patch, nicotine lozenges, and nicotine gum. Resources for Quitting Smoking: <https://www.[place].gov/documents/[facility]/Quit_Tobacco_Resources_for_patients_313 480_7.pdf> Supplementation: Take recommended dosages of Vitamin D and Calcium to help fortify your bones and help them to heal. See your health maintenance packet for dosages and recommended levels. DVT/VTE prophylaxis: You will be given compression stockings from the hospital. Wear these daily for the first two weeks after surgery. You may take them off at night. You may be prescribed a medication to help thin your blood. Take this as directed. If you are not prescribed this medication, early and frequent ambulation has been shown to be the best prophylaxis to deep vein thrombosis and sequelae related to this event. Discharge Disposition: HOME WITH HOME HEALTH SERVICES
[2022-04-05 08:25] VITALS: BP 155/92; PULSE 79; RESP 17; TEMP 98.1
--- NOTE | 2022-04-05 08:39 | P.PN ---
Subjective Progress Note Date: 04/05/22 Principal diagnosis: Cervical stenosis Adjacent segment disease Patient seen and examined this morning. She was assisted to sit upright in bed. Staple had been removed from the right side of her scalp. Patient tolerated well. She continues to have c/o pain in the posterior region of her cervical spine due to procedure. Medications have been provided. Surgical dressing CDI, hard cervical collar intact. She states she has been ambulatory to the restroom, tolerating activity. Patient has been afebrile, denies nausea/vomiting, or chest pain. Objective - Vital Signs Vital signs: Vital Signs Temp 98.1 F 04/05/22 07:00 Pulse 79 04/05/22 07:00 Resp 17 04/05/22 07:00 BP 155/92 04/05/22 07:00 Pulse Ox 96 04/05/22 07:00 FiO2 Intake & Output 04/04/22 04/05/22 04/05/22 18:59 06:59 18:59 Output Total 2450 Balance -2450 Output: Urine 2450 Other: Voiding Method Bedside Commode Bedside Commode # Voids 1 1 - Exam Physical Examination General: The patient is awake and alert, in no acute distress Skin: Skin is warm and dry with no obvious rashes or lesions. Hairy patches absent, no dorsal skin dimples, no cafe au lait spots. Surgical incisions in the anterior and posterior cervical spine, dressings CDI. Eye: Pupils are equal, round and reactive to light, extra-ocular movements are intact; there is normal conjunctiva bilaterally. Neck: The neck is supple, there is slight tenderness and limited ROM, hard cervical collar present. Cardiovascular: There is a regular rate and rhythm. No murmur, rub or gallop is appreciated. Respiratory: Lungs are clear to auscultation, respirations are non-labored, breath sounds are equal. Gastrointestinal: Soft, non-distended, non-tender abdomen. Back: There is no tenderness to palpation in the midline, paralumbar, parathoracic or buttocks region. There is no obvious deformity . Musculoskeletal: ROM limited secondary to pain and stiffness from surgical procedure. Muscle strength in all major muscle groups of bilateral upper extremi ties 4/5, bilateral lower extremities 5/5. Neurological: CN 2-12 intact. There are no obvious motor or sensory deficits. Movement and coordination equal and intact. Sensory exam to light touch intact C5-T1 and intact from L2-S1. Reflexes 2/4 in bilateral upper and lower extremities. Negative Hoffmans, babinski, and clonus signs. Psychiatric: Cooperative, appropriate mood & affect, normal judgment. - Labs CBC & Chem 7: 04/03/22 06:30 04/03/22 06:30 Assessment and Plan Assessment: Postop day 4: Stage I revision C5-C7 ACDF, Postop Day 3: Stage II C-C7 PCDF Cervical stenosis Adjacent segment disease Plan: -Appreciate [place] consultant and team management. -NPO for Stage II posterior cervical fusion later this afternoon. -Activity: Ambulate QID, OOB all meals, up and about, limit lifting bending twisting to less than 5 lbs. Use walker or cane if needed for stability. -Daily PT/OT, increase ambulation strength and balance. -Hard cervical collar at all times, may remove for showers -Pain control: Adequate at this time -Meds: reviewed -GI ppx: senna, Miralax -DVT PPX: Mechanical -Hygiene: Shower today. Maintain dressing clean and dry. -Drains: Maintain for now. -Encourage IS 10x/hr -Dispo: Anticipate discharge home with homecare today *I reviewed and discussed this case with my attending Dr. Rosales, whom has reviewed this chart and films and is in agreement with assessment and plan of care as outlined above. I have personally seen and examined the patient, performed the documentation and the assessment and plan as written. Number of minutes spent on the visit: 20m.
[2022-04-05] MEDS: diazePAM 5 MG TAB PO SCH (08:46)
[2022-04-05] MEDS: LOSARTAN 50 MG TAB PO SCH (08:46)
[2022-04-05] MEDS: CITALOPRAM HYDROBROMIDE 20 MG TAB PO SCH (08:46)
[2022-04-05] MEDS: atenoloL 50 MG TAB PO SCH (08:46)
[2022-04-05] MEDS: GABAPENTIN 300 MG CAP PO SCH (08:46)
[2022-04-05] MEDS: hydroCHLOROthiazide 25 MG TAB PO SCH (08:46)
--- NOTE | 2022-04-05 08:49 | PN ---
PROGRESS NOTE DATE OF SERVICE: 04/03/2022 SUBJECTIVE: A 56-year-old white female. She is lying in bed, vomiting. She is lying in a hunched position on her arms and knees. OBJECTIVE: CARDIOVASCULAR: S1, S2. LUNGS: Scattered rhonchi and wheeze. PSYCH: Fair mood and affect. NEUROLOGIC: Alert and oriented x3. OPHTHALMOLOGIC: Pupils equal, round, reactive. ASSESSMENT: Status post cervical disk disease with anesthesia type effects of nausea, vomiting, leukocytosis. Continue antibiotics, anti-nausea medications and anti-GERD medications. Please see further orders. Prognosis guarded. MMODL / IJN: [id number] /
[2022-04-05] MEDS: NON FORMULARY DRUG (Linaclotide [Linzess] 145 MCG Capsule) PO SCH (09:05)
--- NOTE | 2022-04-05 12:12 | P.OP ---
Date of Procedure: 04/02/22 Preoperative Diagnosis: 1. 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 Mechanical neck pain 3. Cervical myelopathy Postoperative Diagnosis: 1. 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 Mechanical neck pain 3. Cervical myelopathy Procedure(s) Performed: 1. C4-T1 posteriolateral stabilized fusion (26108, [id number]) 2. Segmental instrumentation C4-T1 (33647) 3. Bilateral laminectomy, partial medial facetecomy and foraminotomy C4-T1 (58996, [id number]) Implants: -[employer] posterior cervical system -MagnatOs, autograft Anesthesia: GETA Surgeon: Dexter Rosales Autocad Detailer #1: Morales Barriga Estimated Blood Loss (ml): 150 IV fluids (ml): 700 Urine output (ml): 200 Pathology: none sent Condition: stable Disposition: PACU Indications for Procedure: Ms. Dela Cruz is presenting for evaluation of cervical pain. It was my pleasure to have seen and examined Ms. Dela Cruz. In our visit today we have had a chance to go over subjective complaints, physical examination findings and treatments including the natural course history without intervention and various interventional options. The patients imaging demonstrates: XRay Cervical multiview (Lateral, Flexion, Extension, AP, Oblique) 5 views completed at [facility] taken on 01/07/22 of Cervical Spine: Images reviewed demonstrate post surgical changes with anterior C5-[address]. There is some adjacent segment disease C4-5 noted with disc height loss. Screws and plate are in position without evidence of fracture or loosening. Overall alignment is flattened lordosis. No instability noted at this time. MRI scan from12/29/21 completed at [facility]: Images reviewed demonstrated again post surgical changes C5-6. There is residual, moderate to severe central stenosis at C5-6 due to continued disc material as well as posterior based ligamental hypertrophy causing stenosis at this level. There are no acute fractures noted. No instability noted at this time. C0-1 and C1-2 are stable. Disc material extends down to C7 level as well. On physical exam, Ms. Dela Cruz demonstrates significantly restricted cervical ROM with significnat pain with flexion/extension. Patient does also demonstrate right upper extremity weakness diffusely through all major muscle groups. Furthermore the patient is hyperreflexic bilaterally as well. Lastly the patient does have bilateral Hoffmans. I have explained to the patient that as their condition progresses it will cause further neurological deficits and eventual paralysis. Based on the patients imaging, physical exam, and the rapid progression and disabling nature of their symptoms, at this time I recommend surgery in the form of a: cervical (C5-C7) revision ACDF. I discussed the risk and benefits of this procedure at length with Ms. Dela Cruz. The patient and her family agreed to considered pursuing the procedure abovementioned. Prior to surgery, she should follow up with her PCP (Cardio, ID, IM etc) for clearance. Questions were invited and answered, and the patient wishes to proceed as outlined below. Currently, I am recommendin. Stage I: cervical (C5-C7) revision ACDF Stage II: separate date C5-T1 posterior decompression and fusion. Description of Procedure: The patient was seen and examined in the preoperative area. All preoperative protocols were followed. Informed consent was obtained risks and benefits of the procedure were discussed at length. Risks including bleeding infection damage to the surrounding tissue and risk of reoperation were discussed with the patient. Risk of anesthesia up to and including was a discussed with the patient. These are outlined in the risk review. They were willing to accept th mariel risks and all of the risks of surgery. The patient was given a weight-based dose of antibiotics in the form of 2 g Ancef. The patient was seen and evaluated by the anesthesia team who deemed them fit for surgery. The site was marked, the patient was willing to proceed with the procedure. The patient was transferred to the operative suite by the Department of anesthesia. They were then drifted off to sleep by the department anesthesia and GETA was performed. The patient tolerated this well. pre-positioning motors were obtained.Marroquin in place from the floor. Once confirmation of lines and ventilation Owens head clamp was placed on the patient and secured and the patient was transferred to a [prone Misha table very carefully] with the Owens waiter/waitress head the head was secured and placed into an optimal position x- ray confirmed this position. Post-positioning motors remained stable. All bony prominences including wrists, elbows, axilla, chest, hips, and thighs, and feet were padded very well. Special attention was paid to the genitalia and these were padded accordingly. SCDs were placed on bilateral lower extremities and were connected. Arms were well padded and placed tucked at his side thumbs down. Shoulders were gently taped down to the table.. Once in position, again we confirmed good ventilation capabilities and that lines were running appropriately. The patient's posterior cervical spine was then exposed. 1010s were placed outlining the incision site. Standard alcohol was used to clean the incision site and allowed to dry. C-arm was used to biomark the patient and confirm level for incision which was marked with a skin marker. Operative briefing was performed with all teams and everyone in agreement to proceed. The patient was then prepped and draped in a normal sterile fashion. Timeout was then performed and all parties were in agreement with the procedure to be performed. Midline skin incision made over the previously biomarked area and dissection taken down midline to the SP of C4-T1. Subperiosteal dissection taken out over the lamina and lateral masses of C4-C7 and TVP of T1. Once exposure complete, wound was irrigated and c arm brought in for imaging. We proceeded to the T1 screws bilaterally meli was used to remove the facet joint of C7 and to create a starting point for T1. Pedicle finder was then passed into T1 and imaging taken to confirm placement this was then removed and a tap placed ball-tipped probe was then placed and 4 guaman of pedicle fell with good bottom. Screw was then measured and placed into T1. This is repeated on the contralateral side. The wound was then irrigated. Lateral mass screws were then drilled to 14 mm and placed at each level from C4-C7. Each had a good bite. Rods were then sized and selected and cut to length. They were bent accordingly and lordosis. There is secured into C4 bilaterally and then sequentially her diet reduced into T1. All set screws were placed and were then final tightened and the position. Laminectomy was then performed using Ronjair followed by meli bilateral laminotomies and laminectomy was performed using high-speed bur Kerrison Ronjair and up-biting curette. Motors were run before and after decompression and they remain stable. Good pulsations of the cord were noted after decompression. The wound was then copiously irrigated with 3 L of Ancef irrigation followed by 3 L of gentamicin irrigation followed by 3 L of normal sterile saline. Facet joints were drilled at each level to allow for fusion Surgicel was placed over the dura. MagnetOs were placed in the posterior lateral gutters along with Nikki and DBM. This was impacted into position for fusion. 2 g of powdered bank was not placed deep within the wound and a deep drain was placed. A cross-link was placed and final tightened. We then proceeded with layered closure first in the deep fascia with #1 PDS then in the middle fascia with 0 Vicryl superficial fascia was closed with 2-0 Vicryl and skin closed with skin ryan. The wound edges approximated very well. The wound was then cleaned and dressed sterilely with an operative foam dressing 4 x 4 and Tegaderm. The drain had good suction. The patient was placed in a hard cervical collar.The patient was transferred back to their hospital bed atraumatically. Owens head clamp was removed and pin sites were clear. [Drain continued to hold suction and were in good position]. Patient was then awakened and extubated by the department of anesthesia having tolerated the procedure very well with no complications. They were transferred to the postoperative care unit in stable condition.
== END 2022-04-05 11:06 | disposition home health service (06) | DRG 455 ==
LOC: 2ORMAIN 08:56 → EDSTATUS 10:45 → 4SSUR 19:02
PROVIDERS: ADMIT Orthopaedic Surgery; ATTEND Orthopaedic Surgery
PROC: 0RG2070 Fusion of 2 or more Cervical Vertebral Joints with Autologous Tissue Substitute, Anterior Approach, Anterior Column, Open Approach (ICD-10-PCS; 2022-04-01)
PROC: 0RP10AZ Removal of Interbody Fusion Device from Cervical Vertebral Joint, Open Approach (ICD-10-PCS; 2022-04-01)
PROC: 0RT30ZZ Resection of Cervical Vertebral Disc, Open Approach (ICD-10-PCS; 2022-04-01)
PROC: 0RG20A0 Fusion of 2 or more Cervical Vertebral Joints with Interbody Fusion Device, Anterior Approach, Anterior Column, Open Approach (ICD-10-PCS; principal; 2022-04-01 10:45)
PROC: 0RG2071 Fusion of 2 or more Cervical Vertebral Joints with Autologous Tissue Substitute, Posterior Approach, Posterior Column, Open Approach (ICD-10-PCS; 2022-04-02)
PROC: 01N10ZZ Release Cervical Nerve, Open Approach (ICD-10-PCS; 2022-04-02)
PROC: 01N80ZZ Release Thoracic Nerve, Open Approach (ICD-10-PCS; 2022-04-02)
PROC: 0RG20AJ Fusion of 2 or more Cervical Vertebral Joints with Interbody Fusion Device, Posterior Approach, Anterior Column, Open Approach (ICD-10-PCS; 2022-04-02)
PROC: 0RG40AJ Fusion of Cervicothoracic Vertebral Joint with Interbody Fusion Device, Posterior Approach, Anterior Column, Open Approach (ICD-10-PCS; 2022-04-02)
DX: M47.22 Other spondylosis with radiculopathy, cervical region (principal); G47.9 Sleep disorder, unspecified; I10 Essential (primary) hypertension; J44.9 Chronic obstructive pulmonary disease, unspecified; M48.02 Spinal stenosis, cervical region; M25.78 Osteophyte, vertebrae; R53.81 Other malaise; G89.29 Other chronic pain; Z98.1 Arthrodesis status; Z87.891 Personal history of nicotine dependence; Z79.899 Other long term (current) drug therapy
CPT/HCPCS: 72040; 72125; 80048; 80053; 85025; 86850; 86900; 86901

== ENCOUNTER → 2022-11-02 | Outpatient (CLI) | payer MEDICARE ==
[2022-11-02 15:31] LABS: HCT 32.8 % (37.2-46.3); HGB 11.3 d/dL (12.0-15.0); MCH 28.8 pg (27.0-32.0); MCHC 34.5 d/dL (32.0-37.0); MCV 83.7 FL (80.0-97.0); Mean Platelet Volume 9.1 FL (9.5-12.2); NRBC Per 100 WBC 0 X 10*3/uL (0.00-0.01); Platelet Count 488 X 10*3/uL (140-440); RBC 3.92 X 10*6/uL (4.10-5.20); RDW 14.3 % (11.5-14.5)
[2022-11-02 16:07] LABS: ALT 14 U/L (8-44); AST 23 U/L (13-35); Albumin 4.8 d/dL (3.8-4.9); Albumin/Globulin Ratio 2.09 Ratio (1.60-3.17); Alkaline Phosphatase 79 U/L (41-126); Blood Urea Nitrogen 12.3 mg/dL (9.0-27.0); Calcium 9.7 mg/dL (8.7-10.3); Carbon Dioxide 24.5 mmol/L (21.6-31.8); Chloride 89 mmol/L (96-109); Globulin 2.3 d/dL (1.6-3.3); Glucose 107 mg/dL (70-110); LDL Cholesterol,Calculated 98.2 mg/dL (0.0-131.0); Sodium 127 mmol/L (135-145); Total Bilirubin 0.3 mg/dL (0.3-1.2); Total Protein 7.1 d/dL (6.2-8.2); VLDL Calculation 18.18 mg/dL (5.00-40.00)
== END | disposition home or self-care (01) ==
LOC: LABWHC1 11:02
PROVIDERS: ATTEND Orthopaedic Surgery
DX: Z79.899 Other long term (current) drug therapy (principal); R73.03 Prediabetes
CPT/HCPCS: 36415; 80053; 80061; 82306; 82607; 82746; 83036; 84443; 85027

== ENCOUNTER → 2022-11-16 | Outpatient (CLI) | payer MEDICARE ==
[2022-11-16 20:35] LABS: Basophils # (A) 0.04 X 10*3/uL (0.00-0.10); Basophils % (A) 0.4 %; Eosinophils # (A) 0.06 X 10*3/uL (0.04-0.35); Eosinophils % (A) 0.7 %; HCT 32.1 % (37.2-46.3); HGB 10.7 d/dL (12.0-15.0); Lymphocytes # (A) 2.09 X 10*3/uL (0.90-5.00); Lymphocytes % (A) 23.4 %; MCHC 33.3 d/dL (32.0-37.0); Mean Platelet Volume 9.2 FL (9.5-12.2); Monocytes % (A) 7.8 %; NRBC Per 100 WBC 0 X 10*3/uL (0.00-0.01); Neutrophils # (A) 6.01 X 10*3/uL (1.80-7.70); Neutrophils % (A) 67.4 %; Platelet Count 428 X 10*3/uL (140-440); RBC 3.69 X 10*6/uL (4.10-5.20); RDW 14.3 % (11.5-14.5); WBC 8.93 X 10*3/uL (4.50-10.00)
[2022-11-16 21:03] LABS: Blood Urea Nitrogen 23.3 mg/dL (9.0-27.0); Carbon Dioxide 25.4 mmol/L (21.6-31.8); Chloride 91 mmol/L (96-109); Potassium 3.8 mmol/L (3.5-5.5); Sodium 128 mmol/L (135-145)
== END | disposition home or self-care (01) ==
LOC: LABWHC1 12:17
PROVIDERS: ATTEND Family Medicine
DX: Z51.81 Encounter for therapeutic drug level monitoring (principal); I10 Essential (primary) hypertension; B89 Unspecified parasitic disease; Z79.899 Other long term (current) drug therapy
CPT/HCPCS: 36415; 80051; 82565; 84520; 85025

== ENCOUNTER → 2022-12-10 | Outpatient (CLI) | payer MEDICARE ==
[2022-12-10 16:09] LABS: Blood Urea Nitrogen 17.1 mg/dL (9.0-27.0); Carbon Dioxide 23.7 mmol/L (21.6-31.8); Chloride 91 mmol/L (96-109); Potassium 4.3 mmol/L (3.5-5.5); Sodium 126 mmol/L (135-145)
== END | disposition home or self-care (01) ==
LOC: LABWHC1 10:14
PROVIDERS: ATTEND Family Medicine
DX: I10 Essential (primary) hypertension (principal)
CPT/HCPCS: 36415; 80051; 82565; 84520

== ENCOUNTER → 2023-02-01 | Outpatient (CLI) | payer MEDICARE ==
--- NOTE | 2023-02-01 11:24 | MM ---
Reason for Exam: Screening (asymptomatic). Last mammogram was performed 2 year(s) and 5 month(s) ago. Patient History: Menarche at age 12. First Full-Term at age 22. Postmenopausal. Risk Values: Etta 5 year model risk: 1.1%. NCI Lifetime model risk: 6.2%. Prior Study Comparison: 11/08/2011 Left Diagnostic Mammogram, [facility]. 12/31/2014 Bilateral Screening Mammogram, [facility]. 09/05/2020 Bilateral Screening Mammogram, [facility]. Tissue Density: The breast tissue is heterogeneously dense. This may lower the sensitivity of mammography. Findings: Analyzed By CAD. There is no suspicious group of microcalcifications or new suspicious mass in either breast. Benign vascular calcifications within both breasts. Overall Assessment: Benign, BI-RAD 2 Management: Screening Mammogram of both breasts in 1 year. A clinical breast exam by your physician is recommended on an annual basis and results should be correlated with mammographic findings. Note on Etta scores and lifetime risk: 1. A Etta score greater than 3% is considered moderate risk. If this is the case, consider specialist referral to assess eligibility for a risk reducing agent. If overall lifetime risk for the development of breast cancer is 20% or higher, the patient may qualify for future screening with alternating mammogram and breast MRI. Electronically signed and approved by: Gonzalo Emmanuel D.O.
== END | disposition home or self-care (01) ==
LOC: RADMAMWWP 10:49
PROVIDERS: ATTEND Family Medicine
DX: Z12.31 Encounter for screening mammogram for malignant neoplasm of breast (principal); Z78.0 Asymptomatic menopausal state
CPT/HCPCS: 77063; 77067

== ENCOUNTER → 2023-07-27 | Outpatient (CLI) | payer MEDICARE ==
[2023-07-27 19:05] LABS: Basophils # (A) 0.02 X 10*3/uL (0.00-0.10); Basophils % (A) 0.2 %; Eosinophils # (A) 0.05 X 10*3/uL (0.04-0.35); Eosinophils % (A) 0.6 %; HCT 41.3 % (37.2-46.3); HGB 13.8 g/dL (12.0-15.0); Lymphocytes # (A) 2.12 X 10*3/uL (0.90-5.00); Lymphocytes % (A) 26.2 %; MCH 31.7 pg (27.0-32.0); MCHC 33.4 g/dL (32.0-37.0); MCV 94.7 FL (80.0-97.0); Mean Platelet Volume 9.1 FL (9.5-12.2); Monocytes # (A) 0.64 X 10*3/uL (0.20-1.00); Monocytes % (A) 7.9 %; NRBC Per 100 WBC 0 X 10*3/uL (0.00-0.01); Neutrophils # (A) 5.23 X 10*3/uL (1.80-7.70); Neutrophils % (A) 64.9 %; Platelet Count 422 X 10*3/uL (140-440); RBC 4.36 X 10*6/uL (4.10-5.20); WBC 8.08 X 10*3/uL (4.50-10.00)
[2023-07-27 19:42] LABS: BUN/Creat Ratio 28.29 Ratio (12.00-20.00); Blood Urea Nitrogen 19.8 mg/dL (9.0-27.0); Carbon Dioxide 25.5 mmol/L (21.6-31.8); Chloride 93 mmol/L (96-109); Chol/HDL Ratio 3.43 Ratio; Glucose 136 mg/dL (70-110); LDL Cholesterol,Calculated 135.4 mg/dL (0.0-131.0); Magnesium 1.9 mg/dL (1.5-2.4); Potassium 4.6 mmol/L (3.5-5.5); Sodium 131 mmol/L (135-145)
[2023-07-27 19:43] LABS: ALT 19 U/L (8-44); AST 24 U/L (13-35); Albumin 4.8 g/dL (3.8-4.9); Albumin/Globulin Ratio 1.92 Ratio (1.60-3.17); Alkaline Phosphatase 77 U/L (41-126); Calcium 10.3 mg/dL (8.7-10.3); Globulin 2.5 g/dL (1.6-3.3); Total Bilirubin 0.3 mg/dL (0.3-1.2); Total Protein 7.3 g/dL (6.2-8.2)
== END | disposition home or self-care (01) ==
LOC: LABWHC1 11:52
PROVIDERS: ATTEND Family Medicine
DX: I10 Essential (primary) hypertension (principal); Z79.899 Other long term (current) drug therapy
CPT/HCPCS: 36415; 80053; 80061; 83036; 83735; 84443; 85025